=== PATIENT | male | born 1940 | race Two or more races ===

== ENCOUNTER 2020-07-15 00:28 | Inpatient (IN) | payer OTHER ==
[~2020-07-15] VITALS: Ht 162.6 cm; Wt 65.3 kg
[2020-07-15] VITALS (7 sets, daily range): BP systolic 119–161; BP diastolic 44–68
--- NOTE | 2020-07-15 00:30 | NUR ---
ED Nurse Note: pt biba from home CO SOB and abdominal pain 06/29. Pt states that he uses 2L 02 NC at home regularly. Pt states recent onset of shaking with unknown precipitating factors. Pt aao x 4, ambulates with assistance at this time. Pt states ambulates with steady gait at home normally without the use of assistive devices. Iv line initiated, blood drawn and sent to lab. Pt placed on 6L 02 NC for Spo2 of 93%. Awaiting RT at bedside for bipap. ERMD at bedside. Awaiting further orders.
--- NOTE | 2020-07-15 00:35 | NUR ---
ED Nurse Note: RT at bedside
--- NOTE | 2020-07-15 00:35 | Emergency Room Report ---
History of Present Illness General Chief Complaint: Dyspnea/Respdistress Source: Patient, EMS Present Illness HPI Patient is an 80-year-old male past medical history of diabetes, chronic renal insufficiency and COPD who is oxygen dependent on 6 L nasal cannula at home was brought in by EMS for shortness of breath. Per EMS this was their second call out to him today. Patient's had called him for generalized weakness and shaking. Patient AMA earlier in the day. Second time they arrived patient was hypoxic on his home O2 they switched the tubing to his oxygen tank and his oxygen saturation went up. They stated the called him again due to patient 's shaking. Patient states he does not feel 1 feels weak. He complains of shortness of breath. He denies any chest pain. He denies any fever or chills. He denies any abdominal pain nausea or vomiting. Allergies: Coded Allergies: No Known Allergies (Unverified , 07/15/20) COVID-19 Screening Contact w/high risk pt: No Experienced COVID-19 symptoms?: Yes COVID-19 Testing performed MANAGER TALENT ACQUISITION: No Patient History Reviewed Nursing Documentation: PMH: Agreed; PSxH: Agreed Nursing Documentation-PMH Hx Cardiac Problems: Yes - respiratory failure Hx Hypertension: Yes Hx Pacemaker: Yes Hx Asthma: Yes Hx COPD: Yes Hx Diabetes: Yes Review of Systems All Other Systems: negative except mentioned in HPI Physical Exam Vital Signs Date Time Temp Pulse Resp B/P (MAP) Pulse Ox O2 Delivery O2 Flow Rate FiO2 07/15/20 00:20 82 35 161/47 (85) 96 Non-Rebreather 7.0 Sp02 EP Interpretation: reviewed, abnormal General Appearance: mild distress Head: normocephalic, atraumatic Eyes: bilateral eye normal inspection, bilateral eye PERRL ENT: hearing grossly normal, normal pharynx, no angioedema, normal voice Neck: supple, no meningismus Respiratory: crackles, other - Tachypneic mild respiratory distress Cardiovascular #1: regular rate, rhythm Gastrointestinal: non tender, soft, no guarding, no rebound, overweight Rectal: deferred Musculoskeletal: no calf tenderness Neurologic: system dispatcher III-XII nml as tested Psychiatric: no suicidal/homicidal ideation Skin: other - 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 Due to a high probability of clinically significant, life threatening deterioration, the patient required my highest level of preparedness to intervene emergently and I personally spent this critical care time directly and personally managing the patient. This critical care time included obtaining a history; examining the patient; pulse oximetry; ordering and review of studies; arranging urgent treatment with development of a management plan; evaluation of patient's response to treatment ; frequent reassessment; and, discussions with other providers.This critical care time was performed to assess and manage the high probability of imminent, life-threatening deterioration that could result in multi-organ failure. It was exclusive of separately billable procedures and treating other patients and teaching time. Please see MDM section and the rest of the note for further information on patient assessment and treatment. Medical Decision Making Diagnostic Impression: Primary Impression: COPD exacerbation Additional Impressions: CHF (congestive heart failure) Hyponatremia Hyperkalemia Acute renal failure Sepsis Pneumonia ER Course Initial blood gas demonstrates normal pH and normal PCO2. PaO2 over 200. Adjusting FiO2 to 50%. Patient doing well on BiPAP. Patient has been pancultured. Patient's white count 18,000 with lactate of 2.4. Sepsis protocol initiated. Patient not given 30 cc/kg of IV fluids due to CHF, right pleural effusion and risk of respiratory failure. Patient mildly hyperkalemic with potassium of 5.7. 20 mg of IV Lasix has been ordered. Patient's troponin is also mildly elevated at 0.11. Patient has no active chest pain. Patient given oral aspirin. Patient started on azithromycin as well as cefepime due to community-acquired pneumonia. Patient's COVID-19 PCR is negative. Patient will be admitted for further treatment and evaluation. Laboratory Tests Test 07/15/20 00:20 07/15/20 00:26 07/15/20 00:55 White Blood Count 18.2 K/UL (4.8-10.8) H Red Blood Count 4.64 M/UL (4.70-6.10) L Hemoglobin 12.5 G/DL (14.2-18.0) L Hematocrit 40.7 % (42.0-52.0) L Mean Corpuscular Volume 88 FL (80-99) Mean Corpuscular Hemoglobin 27.0 PG (27.0-31.0) Mean Corpuscular Hemoglobin Concent 30.8 G/DL (32.0-36.0) L Red Cell Distribution Width 16.4 % (11.6-14.8) H Platelet Count 178 K/UL (150-450) Mean Platelet Volume 7.2 FL (6.5-10.1) Neutrophils (%) (Auto) % (45.0-75.0) Lymphocytes (%) (Auto) % (20.0-45.0) Monocytes (%) (Auto) % (1.0-10.0) Eosinophils (%) (Auto) % (0.0-3.0) Basophils (%) (Auto) % (0.0-2.0) Differential Total Cells Counted 100 Neutrophils % (Manual) 82 % (45-75) H Lymphocytes % (Manual) 14 % (20-45) L Monocytes % (Manual) 4 % (1-10) Eosinophils % (Manual) 0 % (0-3) Basophils % (Manual) 0 % (0-2) Band Neutrophils 0 % (0-8) Platelet Estimate Adequate Platelet Morphology Normal Prothrombin Time 13.2 SEC (9.30-11.50) H Prothrombin Time INR 1.2 (0.9-1.1) H Activated Partial Thromboplast Time 31 SEC (23-33) Sodium Level 131 MMOL/L (136-145) L Potassium Level 5.7 MMOL/L (3.5-5.1) H Chloride Level 97 MMOL/L (98-107) L Carbon Dioxide Level 23 MMOL/L (21-32) Anion Gap 11 mmol/L (5-15) Blood Urea Nitrogen 54 mg/dL (7-18) H Creatinine 2.2 MG/DL (0.55-1.30) H Estimated Glomerular Filtration Rate 28.9 mL/min (>60) Glucose Level 175 MG/DL (74-106) H Lactic Acid Level 2.40 mmol/L (0.4-2.0) H Calcium Level 8.3 MG/DL (8.5-10.1) L Magnesium Level 2.4 MG/DL (1.8-2.4) Total Bilirubin 0.4 MG/DL (0.2-1.0) Aspartate Amino Transferase (AST) 55 U/L (15-37) H Alanine Aminotransferase (ALT) 26 U/L (12-78) Alkaline Phosphatase 102 U/L (46-116) Total Creatine Kinase 184 U/L (26-308) Troponin I 0.115 ng/mL (0.000-0.056) Pro-B-Type Natriuretic Peptide 8916 pg/mL (0-125) H Total Protein 7.6 G/DL (6.4-8.2) Albumin 2.1 G/DL (3.4-5.0) L Globulin 5.5 g/dL Albumin/Globulin Ratio 0.4 (1.0-2.7) L Arterial Blood pH 7.414 (7.350-7.450) Arterial Blood Partial Pressure CO2 36.9 mmHg (35.0-45.0) Arterial Blood Partial Pressure O2 263.0 mmHg (75.0-100.0) H Arterial Blood HCO3 23.1 mmol/L (22.0-26.0) Arterial Blood Oxygen Saturation 99.0 % (95-100) Arterial Blood Base Excess -1.1 (-2-2) Abdulaziz Test Positive Urine Color Pending Urine Appearance Pending Urine pH Pending Urine Specific [place] Pending Urine Protein Pending Urine Glucose (UA) Pending Urine Ketones Pending Urine Blood Pending Urine Nitrite Pending Urine Bilirubin Pending Urine Urobilinogen Pending Urine Leukocyte Esterase Pending Microbiology Date/Time Source Procedure Growth Status 07/15/20 00:20 Nasopharynx SARS-CoV-2 RdRp Gene Assay - Final Complete EKG Diagnostic Results EKG Time: 00:32 EP Interpretation: Tia Burton MD Rate: normal - 75 bpm Rhythm: NSR ST Segments: no acute changes Other Impression Right bundle branch block Rhythm Strip Diag. Results Rhythm Strip Time: 00:35 EP Interpretation: yes - Tia Burton MD Rate: 76 bpm Rhythm: NSR, no PVC's, no ectopy Chest X-Ray Diagnostic Results Chest X-Ray Diagnostic Results : Chest X-Ray Ordered: Yes # of Views/Limited/Complete: 1 View Indication: Shortness of Breath EP Interpretation: Yes Interpretation: other - Cardiomegaly, right pleural effusion, right-sided pulmonary infiltrates, increased pulmonary vasculature Impression: Other - CHF, right pleural effusion, pneumonia Electronically Signed by: Tia Burton MD Last Vital Signs Date Time Temp Pulse Resp B/P (MAP) Pulse Ox O2 Delivery O2 Flow Rate FiO2 07/15/20 00:20 82 35 161/47 (85) 96 Non-Rebreather 7.0 Disposition: ADMITTED INPATIENT Condition: Critical Physician Consult: Dr. Garcia paged at 1:41 AM Additional Instructions: Please note that this report is being documented using DRAGON technology. This can lead to erroneous entry secondary to incorrect interpretation by the dictating instrument. Sepsis Event Note Evaluation Current Stage of Sepsis: Sepsis Possible Source: Pulmonary Focused Exam Allergies: Coded Allergies: No Known Allergies (Unverified , 07/15/20) Date Exam Occurred: Jul 15, 2020 Time Exam Occurred: 01:37 Laboratory Studies Laboratory Tests Test 07/15/20 00:20 07/15/20 00:26 07/15/20 00:55 White Blood Count 18.2 K/UL (4.8-10.8) H Red Blood Count 4.64 M/UL (4.70-6.10) L Hemoglobin 12.5 G/DL (14.2-18.0) L Hematocrit 40.7 % (42.0-52.0) L Mean Corpuscular Volume 88 FL (80-99) Mean Corpuscular Hemoglobin 27.0 PG (27.0-31.0) Mean Corpuscular Hemoglobin Concent 30.8 G/DL (32.0-36.0) L Red Cell Distribution Width 16.4 % (11.6-14.8) H Platelet Count 178 K/UL (150-450) Mean Platelet Volume 7.2 FL (6.5-10.1) Neutrophils (%) (Auto) % (45.0-75.0) Lymphocytes (%) (Auto) % (20.0-45.0) Monocytes (%) (Auto) % (1.0-10.0) Eosinophils (%) (Auto) % (0.0-3.0) Basophils (%) (Auto) % (0.0-2.0) Differential Total Cells Counted 100 Neutrophils % (Manual) 82 % (45-75) H Lymphocytes % (Manual) 14 % (20-45) L Monocytes % (Manual) 4 % (1-10) Eosinophils % (Manual) 0 % (0-3) Basophils % (Manual) 0 % (0-2) Band Neutrophils 0 % (0-8) Platelet Estimate Adequate Platelet Morphology Normal Prothrombin Time 13.2 SEC (9.30-11.50) H Prothromb Time International Ratio 1.2 (0.9-1.1) H Activated Partial Thromboplast Time 31 SEC (23-33) Sodium Level 131 MMOL/L (136-145) L Potassium Level 5.7 MMOL/L (3.5-5.1) H Chloride Level 97 MMOL/L (98-107) L Carbon Dioxide Level 23 MMOL/L (21-32) Anion Gap 11 mmol/L (5-15) Blood Urea Nitrogen 54 mg/dL (7-18) H Creatinine 2.2 MG/DL (0.55-1.30) H Estimat Glomerular Filtration Rate 28.9 mL/min (>60) Glucose Level 175 MG/DL (74-106) H Lactic Acid Level 2.40 mmol/L (0.4-2.0) H Calcium Level 8.3 MG/DL (8.5-10.1) L Magnesium Level 2.4 MG/DL (1.8-2.4) Total Bilirubin 0.4 MG/DL (0.2-1.0) Aspartate Amino Transf (AST/SGOT) 55 U/L (15-37) H Alanine Aminotransferase (ALT/SGPT) 26 U/L (12-78) Alkaline Phosphatase 102 U/L (46-116) Total Creatine Kinase 184 U/L (26-308) Troponin I 0.115 ng/mL (0.000-0.056) Pro-B-Type Natriuretic Peptide 8916 pg/mL (0-125) H Total Protein 7.6 G/DL (6.4-8.2) Albumin 2.1 G/DL (3.4-5.0) L Globulin 5.5 g/dL Albumin/Globulin Ratio 0.4 (1.0-2.7) L Arterial Blood pH 7.414 (7.350-7.450) Arterial Blood Partial Pressure CO2 36.9 mmHg (35.0-45.0) Arterial Blood Partial Pressure O2 263.0 mmHg (75.0-100.0) H Arterial Blood HCO3 23.1 mmol/L (22.0-26.0) Arterial Blood Oxygen Saturation 99.0 % (95-100) Arterial Blood Base Excess -1.1 (-2-2) Abdulaziz Test Positive Urine Color Pending Urine Appearance Pending Urine pH Pending Urine Specific [place] Pending Urine Protein Pending Urine Glucose (UA) Pending Urine Ketones Pending Urine Blood Pending Urine Nitrite Pending Urine Bilirubin Pending Urine Urobilinogen Pending Urine Leukocyte Esterase Pending Vital Signs Last 24 Hour Vital Signs Date Time Temp Pulse Resp B/P (MAP) Pulse Ox O2 Delivery O2 Flow Rate FiO2 07/15/20 01:24 72 37 99 Bi-Pap 40 73 31 99 40 07/15/20 00:20 82 35 161/47 (85) 96 Non-Rebreather 7.0 Respiratory Exam: Crackles Cardiovascular Exam: RRR Capillary Refill: Less Than 2 Seconds Peripheral Pulse: Tia Bardales M.D. Jul 15, 2020 00:35
[2020-07-15] MEDS ORDERED: Cefepime HCl 2 GM in D5W 55 ML IVPB ONE (00:45)
[2020-07-15] MEDS ORDERED: Solu-MEDROL 125mg Inj IVP ONE (00:45)
[2020-07-15] MEDS ORDERED: Albuterol/Ipratropium 3ml neb HHN ONE ×2 (00:45→02:30)
[2020-07-15] MEDS ORDERED: Azithromycin 500 MG in D5W 275 ML IVPB ONE (00:45)
[2020-07-15] MEDS ORDERED: ADVAIR 250-501 EACH INH (00:55)
[2020-07-15] MEDS ORDERED: COLCHICINE0.6 M1 PO (00:55)
[2020-07-15] MEDS ORDERED: PROSCAR5 MG ORAL (00:55)
[2020-07-15] MEDS ORDERED: ALLOPURINOL100 M1 ORAL (00:55)
[2020-07-15] MEDS ORDERED: FLOMAX0.4 MG ORAL (00:55)
[2020-07-15] MEDS ORDERED: AMLODIPINE BES2.5 MG ORAL (00:55)
[2020-07-15] MEDS ORDERED: ZINC50 MG ORAL (00:55)
[2020-07-15] MEDS ORDERED: ATORVASTATIN CA20 MG ORAL (00:55)
[2020-07-15] MEDS ORDERED: PRADAXA110 MG PO (00:55)
[2020-07-15] MEDS ORDERED: METOPROLOL SUCC25 MG ORAL (00:55)
[2020-07-15] MEDS ORDERED: FUROSEMIDE20 M1 ORAL (00:55)
[2020-07-15] MEDS ORDERED: MONTELUKAST SOD10 MG ORAL (00:55)
[2020-07-15] MEDS ORDERED: ACARBOSE50 MG ORAL (00:55)
[2020-07-15] MEDS ORDERED: ELIQUIS2.5 MG PO (00:55)
[2020-07-15] MEDS ORDERED: SENNA8.6 M2 PO (00:55)
[2020-07-15] MEDS ORDERED: LEVOTHYROXINE100 MC1 IV (00:55)
[2020-07-15 00:58] LABS: HEMATOCRIT 40.7 % (42.0-52.0); HEMOGLOBIN 12.5 G/DL (14.2-18.0); MEAN CORPUSCULAR VOLUME 88 FL (80-99); PLATELET COUNT 178 K/UL (150-450); RED BLOOD COUNT 4.64 M/UL (4.70-6.10); RED CELL DISTRIBUTION WIDTH 16.4 % (11.6-14.8); WHITE BLOOD COUNT 18.2 K/UL (4.8-10.8)
--- NOTE | 2020-07-15 01:00 | NUR ---
ED Nurse Note: All medications administered, pt tolerated well no ss of distress noted.
--- NOTE | 2020-07-15 01:11 | NUR ---
ED Nurse Note: all medications administered, pt tolerated well no ss of distress noted. willc ontinue to monitor.
[2020-07-15 01:14] LABS: INR 1.2 (0.9-1.1)
[2020-07-15 01:16] LABS: ANION GAP 11 mmol/L (5-15); BLOOD UREA NITROGEN 54 mg/dL (7-18); CALCIUM 8.3 MG/DL (8.5-10.1); CARBON DIOXIDE 23 MMOL/L (21-32); CHLORIDE 97 MMOL/L (98-107); CREATININE 2.2 MG/DL (0.55-1.30); POTASSIUM 5.7 MMOL/L (3.5-5.1); SODIUM 131 MMOL/L (136-145)
--- NOTE | 2020-07-15 01:20 | NUR ---
ED Nurse Note: RT at bedside
[2020-07-15 01:27] LABS: ALANINE AMINOTRANSFERASE 26 U/L (12-78); ALBUMIN 2.1 G/DL (3.4-5.0); ALBUMIN/GLOBULIN RATIO 0.4 (1.0-2.7); ALKALINE PHOSPHATASE 102 U/L (46-116); ASPARTATE AMINO TRANSFERASE 55 U/L (15-37); BILIRUBIN,TOTAL 0.4 MG/DL (0.2-1.0); CREATINE KINASE 184 U/L (26-308)
[2020-07-15] MEDS ORDERED: Aspirin Baby 81mg ORAL ONE (01:30)
--- NOTE | 2020-07-15 01:38 | NUR ---
ED Nurse Note: Repeat lactic acid sent to lab
[2020-07-15 01:50] LABS: APPEARANCE,URINE CLOUDY; COLOR,URINE YELLOW; GLUCOSE, URINE (UA) NEGATIVE (NEGATIVE); KETONES,URINE NEGATIVE (NEGATIVE); PROTEIN,URINE 3+ (NEGATIVE)
[2020-07-15 01:51] LABS: BILIRUBIN, URINE NEGATIVE (NEGATIVE); LEUKOCYTE ESTERASE ,URINE 3+ (NEGATIVE); NITRITE,URINE POSITIVE (NEGATIVE); UROBILINOGEN,URINE NORMAL MG/DL (0.0-1.0)
--- NOTE | 2020-07-15 03:00 | NUR ---
ED Nurse Note: RT at bedside
--- NOTE | 2020-07-15 04:10 | NUR ---
ED Nurse Note: pt taken to CT in stable condition with 1 glass technician/installer and 1 RT
--- NOTE | 2020-07-15 04:25 | NUR ---
ED Nurse Note: pt returned from CT in stable condition. VSS no ss of distress noted. will continue to monitor.
--- NOTE | 2020-07-15 05:09 | NUR ---
ED Nurse Note: pt sleeping in bed, VSS no ss of distress noted. will continue to monitor.
--- NOTE | 2020-07-15 05:16 | Diagnostic Imaging Report ---
EXAM: CT Abdomen and Pelvis Without Intravenous Contrast CLINICAL HISTORY: ABD PAIN TECHNIQUE: Axial computed tomography images of the abdomen and pelvis without intravenous contrast. CTDI is 13.20 mGy and DLP is 713.42 mGy-cm. One or more of the following dose reduction techniques were used: automated exposure control, adjustment of the mA and/or kV according to patient size, use of iterative reconstruction technique. COMPARISON: No relevant prior studies available. FINDINGS: Lung bases: See below. Pleural space: Large right lung pleural effusion at the lung base. Atelectasis and scarring of the left lung base. Heart: Cardiomegaly. Heavily calcified mitral annulus. ABDOMEN: Liver: Mild surface nodularity of the liver, correlate with LFTs to evaluate for cirrhosis. Gallbladder and bile ducts: Cholecystectomy. No ductal dilation. Pancreas: Unremarkable. No ductal dilation. Spleen: No splenomegaly. Adrenals: Left adrenal adenoma measuring 2.5 x 3.2 cm. Normal right adrenal gland. Kidneys and ureters: Mild cortical atrophy of the bilateral kidneys without hydronephrosis or nephrolithiasis. Bilateral renal cyst, measuring up to 7.9 x 7.1 cm in the left lower pole. Stomach and bowel: Unremarkable. No obstruction. No mucosal thickening. PELVIS: Appendix: Not visualized. Bladder: Normal urinary bladder. No stones. Reproductive: Enlarged prostate measuring up to 5.5 cm. ABDOMEN and PELVIS: Intraperitoneal space: Moderate volume abdominal ascites. No free air. Bones/joints: Sternotomy wires. Degenerative change of the spine. No acute fracture. No dislocation. Soft tissues: Moderate fluid within the right inguinal canal. Mild anasarca. Vasculature: Calcified thoracic aorta, with coronary involvement. Atherosclerotic change of the abdominal aorta with mild infrarenal abdominal aortic aneurysm measuring 2.2 x 2.4 cm. Lymph nodes: Unremarkable. No enlarged lymph nodes. Tubes, lines and devices: EKG leads within the right atrium and right ventricle. IMPRESSION: Moderate volume abdominal and pelvic ascites. Surface nodularity of the liver, correlate for cirrhosis. No splenomegaly. Cholecystectomy. Left adrenal adenoma measuring 2.5 x 3.2 cm. No hydronephrosis. No small bowel obstruction. No acute diverticulitis. Enlarged prostate. Moderate fluid within the right inguinal canal. Mild anasarca.
--- NOTE | 2020-07-15 06:04 | NUR ---
ED Nurse Note: report given to [facility] on sdu
--- NOTE | 2020-07-15 06:15 | NUR ---
ER DISCHARGE NOTE: Patient is cleared to be discharged to SDU unit per ERMD, pt is aox4, 96% on Bipap, with stable vital signs. pt was able to verbalize understanding. pt is able to ambulate with assistance. pt took all belongings. Pt transferred to unit with 1 RN and 1 MARKET DEVELOPMENT ANALYST on monitor. Report given to CALEB Serrato on SDU unit.
--- NOTE | 2020-07-15 06:25 | NUR ---
NURSE NOTES: Patient arrived SDU Room 235-2 by araceli. Accompanied by 2 ED staffs. Received report from Nikolas RN in ED.Patient awake and oriented x4. on BiPAP (10/5 45%) with no respiratory distress noted. o2 saturation 96%. SR on the cardiac cath lab radiology technologist. BP 136/56 HR 60 RR 22 Temp 96.6 Denies any pain at this time.body assessment was done.Noted redness on sacral area. Patient has pacemaker on left upper chest.hospital orientation given. call light in reach.bed locked,in lowest,alarm is on.we will initiate plan of care.
--- NOTE | 2020-07-15 07:15 | NUR ---
NURSE NOTES: Received report from CALEB Serrato. Seen pt in bed lying in semi-victoria's position. In Bipap attached to patient, RT on bedside . O2 sat on 96% on Bipap. Pt is alert x 4. Able to follow commands. Relative on bedside. Initial assessment done. VS checked. No pain at this time. Pt able to comprehend. No signs of distress noted at this time. Continue to plan of care. Bed in lowest position. Call light within reach. Spoke to dr. Quiroz regarding admit orders made aware.
--- NOTE | 2020-07-15 07:40 | NUR ---
HAND-OFF: Report given to René Ahmadi RN .Patient remains in stable conditions with BiPAP.
[2020-07-15] MEDS ORDERED: Precose 50mg tab ORAL SCH (09:00)
[2020-07-15] MEDS ORDERED: Furosemide 40mg tab ORAL SCH (09:00)
[2020-07-15] MEDS ORDERED: Montelukast 10mg tablet ORAL SCH (09:00)
[2020-07-15] MEDS: Eliquis 2.5mg tablet ORAL SCH ×2 (09:00→17:56)
[2020-07-15] MEDS ORDERED: Metoprolol Succinate XL 25mg tab ORAL SCH (09:00)
[2020-07-15] MEDS ORDERED: Tamsulosin 0.4mg cap ORAL SCH ×2 (09:00→18:00)
[2020-07-15] MEDS ORDERED: Sennosides 8.6mg tab ORAL SCH (09:00)
[2020-07-15] MEDS ORDERED: Allopurinol 100mg Tab ORAL SCH (09:00)
[2020-07-15] MEDS ORDERED: cefTRIAXone 1 GM in D5W 55 ML IVPB SCH (09:30)
--- NOTE | 2020-07-15 10:02 | NUR ---
NURSE NOTES: Seen by Dr. parks and family at bedside. dr parks ordered to hold thoracentesis for now.will continue to monitor.
--- NOTE | 2020-07-15 10:22 | Diagnostic Imaging Report ---
Indication: Shortness of breath Technique: XRAY Chest 1v Comparison: None Findings: Heart is enlarged. There is evidence of prior cardiac surgery with sternotomy wires and indwelling dual-lead pacemaker. Lead tips projecting of the suspected region of the right atrium and ventricle. Note there is some redundancy of the right ventricular lead. There is interstitial opacification/edema and patchy perihilar airspace disease, right greater than left. There is a is small to moderate layering right pleural effusion. No evidence of pneumothorax. Osseous structures demonstrate no acute abnormality. Impression: Cardiomegaly and evidence of prior cardiac surgery with indwelling left-sided pacemaker. Slight redundancy of the right ventricular pacer lead. Findings suggesting pulmonary edema/CHF with perihilar opacities and small to moderate layering right pleural effusion. Superimposed pneumonia should be excluded clinically.
[2020-07-15 10:43] LABS: HEMATOCRIT 40.3 % (42.0-52.0); HEMOGLOBIN 12.3 G/DL (14.2-18.0); MEAN CORPUSCULAR VOLUME 89 FL (80-99); PLATELET COUNT 168 K/UL (150-450); RED BLOOD COUNT 4.55 M/UL (4.70-6.10); RED CELL DISTRIBUTION WIDTH 16.1 % (11.6-14.8)
[2020-07-15] MEDS ORDERED: Cefepime HCl 1 GM in NS 55 ML IVPB SCH (11:00)
[2020-07-15 11:07] LABS: ALANINE AMINOTRANSFERASE 32 U/L (12-78); ALBUMIN 1.9 G/DL (3.4-5.0); ALBUMIN/GLOBULIN RATIO 0.4 (1.0-2.7); ALKALINE PHOSPHATASE 79 U/L (46-116); ANION GAP 9 mmol/L (5-15); ASPARTATE AMINO TRANSFERASE 53 U/L (15-37); BILIRUBIN,TOTAL 0.3 MG/DL (0.2-1.0); BLOOD UREA NITROGEN 60 mg/dL (7-18); CALCIUM 8.2 MG/DL (8.5-10.1); CARBON DIOXIDE 27 MMOL/L (21-32); CHLORIDE 102 MMOL/L (98-107); CHOLESTEROL 105 MG/DL (< 200); CREATINE KINASE 194 U/L (26-308); CREATININE 2.2 MG/DL (0.55-1.30); GAMMA GLUTAMYL TRANSPEPTIDASE 18 U/L (5-85); HDL CHOLESTEROL 38 MG/DL (40-60); PHOSPHORUS 4.7 MG/DL (2.5-4.9); POTASSIUM 5.6 MMOL/L (3.5-5.1); SODIUM 138 MMOL/L (136-145); TRIGLYCERIDES 81 MG/DL (30-150)
--- NOTE | 2020-07-15 12:00 | Consultation ---
DATE OF CONSULTATION: 07/15/2020 INFECTIOUS DISEASES CONSULTATION CONSULTING PHYSICIAN: David Castaneda MD. REFERRING PHYSICIAN: Saman Garcia MD. REASON FOR CONSULTATION: Pneumonia. HISTORY OF PRESENT ILLNESS: This is an 80-year-old gentleman with history of diabetes, COPD, chronic renal insufficiency, cirrhosis, who comes in with shortness of breath. He has increasing abdominal distention. An Infectious Diseases consultation has been obtained for antibiotics. PAST MEDICAL HISTORY: 1. History of diabetes. 2. Hypertension. 3. COPD. 4. Asthma. 5. Chronic renal insufficiency. 6. Cirrhosis. 7. History of pleural effusion status post thoracentesis with pneumothorax. 8. History of pacemaker placement. 9. Cholecystectomy. SOCIAL HISTORY: He used to be a smoker, he does not smoke anymore. He used to drink alcohol, he does not drink anymore. No history of drug use. FAMILY HISTORY: Noncontributory. REVIEW OF SYSTEMS: RESPIRATORY: No fever or chills. No cough. He has shortness of breath. No chest pain. CARDIAC: No chest pain. No palpitation. No dizziness. No syncope. GASTROINTESTINAL: No nausea, no vomiting. He has abdominal distention. No diarrhea. MEDICATIONS: As an inpatient, he is on Lipitor, Lasix, Flomax, Solu-Medrol, levothyroxine, cefepime, acarbose, allopurinol, amlodipine, Eliquis, Proscar, Lasix, metoprolol, montelukast, Senokot. ALLERGIES: No known drug allergies. PHYSICAL EXAMINATION: VITAL SIGNS: Temperature of 96.8, T-max of 98.9, pulse of 60, respiratory rate 21, blood pressure 128/64, O2 saturation 95%. HEENT: Pupils are equally reactive to light and accommodation. Mouth appears clean without thrush. NECK: Supple. No adenopathy. No JVD. CARDIOVASCULAR: Regular rate and rhythm. No murmurs. LUNGS: Clear to auscultation bilaterally. No crackles. No wheezes. ABDOMEN: Soft, distended. No organomegaly. EXTREMITIES: No cyanosis, no clubbing, no edema. LABORATORY AND DIAGNOSTIC DATA: White count 18.2, hemoglobin 12.5, hematocrit 40.7, MCV 88, platelet count of 178, neutrophils of 82%. Sodium 131, potassium 5.7, chloride 97, bicarb 23, BUN 54, creatinine 2.2, glucose 175, calcium 8.3, total bilirubin 0.4, AST 55, ALT 26, alkaline phosphatase 102. CK 184. Beta natriuretic peptide 8916. Total protein 7.6, albumin 2.1. UA showing too numerous to count white cells. COVID-19 rapid test is negative. Chest x-ray showing pulmonary edema, CHF with perihilar opacities, and right-sided pleural effusion, pacemaker noted. CT abdomen and pelvis showing moderate ascites, cirrhosis, splenomegaly, cholecystectomy, left adrenal adenoma, no hydronephrosis, small bowel obstruction, enlarged prostate, moderate fluid within the right inguinal canal, mild anasarca. ASSESSMENT: This an 80-year-old gentleman with history of diabetes, hypertension, renal failure, cirrhosis, COPD who previously had a pneumothorax after a thoracentesis for pleural effusion, now comes in with shortness of breath and is found to have. 1. Urinary tract infection. Cultures are pending. 2. Ascites. 3. Pleural effusion. 4. COPD. 5. Diabetes. 6. Hypertension. 7. Renal insufficiency. PLAN: 1. Continue IV cefepime. 2. We will order urine cultures. 3. We will follow up cultures and adjust antibiotics accordingly. I would like to thank, Dr. Garcia, for this consultation. David Castaneda M.D. DR: Marlys JOB#: [id number] CC: Saman Garcia M.D.; Fax#: [phone]
[2020-07-15] MEDS ORDERED: Sodium Polystyrene Sulfonate 15gm Powder ORAL SCH (12:15)
--- NOTE | 2020-07-15 12:20 | Consultation ---
Consult Note Consult Note I am asked to evaluate the patient at the request of Dr. Garcia for renal failure Patient seen in room 235 Patient was just done with 2D echocardiogram, combination technician states that has an ejection fraction of around 40% CALEB Manuel in the room Patient is Danish not fluent in Swazi Interviewed Examined Data reviewed Patient is an 80-year-old male past medical history of diabetes, chronic renal insufficiency and COPD who is oxygen dependent on 6 L nasal cannula at home was brought in by EMS for shortness of breath. Per EMS this was their second call out to him today. Patient's had called him for generalized weakness and shaking. Patient AMA earlier in the day. Second time they arrived patient was hypoxic on his home O2 they switched the tubing to his oxygen tank and his oxygen saturation went up. They stated the called him again due to patient 's shaking. Patient states he does not feel 1 feels weak. He complains of shortness of breath. He denies any chest pain. He denies any fever or chills. He denies any abdominal pain nausea or vomiting. No Known Allergies (Unverified , 07/15/20) COVID-19 Screening Contact w/high risk pt: No Experienced COVID-19 symptoms?: Yes COVID-19 Testing performed CUSTOMER CARE ASSISTANT: No Hx Cardiac Problems: Yes - respiratory failure Hx Hypertension: Yes Hx Pacemaker: Yes Hx Asthma: Yes Hx COPD: Yes Hx Diabetes: Yes . Assessment/Plan Renal failure, acute on chronic, most likely diabetic nephropathy Presents with shortness of breath most likely combination of COPD exacerbation and CHF Hyperkalemia Sepsis, pneumonia Compromised ejection fraction on 2D echo Questionable cirrhosis BPH Suggestions: Kayexalate for high potassium Kidney ultrasound Bedside bladder scan Flomax and Proscar Optimize pulmonary and cardiac status Avoid nephrotoxic's Keep the blood pressure and blood sugar in check Urine studies Per orders CT ABDOMEN: Moderate volume abdominal and pelvic ascites. If your watch then you can apply surface nodularity of the liver, correlate for cirrhosis. No splenomegaly. Cholecystectomy. Left adrenal adenoma measuring 2.5 x 3.2 cm. No hydronephrosis. No small bowel obstruction. No acute diverticulitis. Enlarged prostate. Moderate fluid within the right inguinal canal. Mild anasarca. Stephan Loera MD Jul 15, 2020 12:20
--- NOTE | 2020-07-15 12:45 | History and Physical Report ---
DATE OF ADMISSION: 07/15/2020 HISTORY OF PRESENT ILLNESS: This is an 80-year-old male with a long and complicated history of COPD, prostate CA, and liver cirrhosis, CHF as well as bladder cancer was brought to the hospital with altered mental status. The patient states that he was recently seen at [facility] where he underwent paracentesis for his chronic ascites. He previously had a complicated right thoracentesis which caused lung collapse and he had to have a chest tube in place. He remained hypoxic and was shaking at home and was brought to the hospital. He was admitted to the hospital for further management and care. PAST MEDICAL HISTORY: Notable for prostate and bladder carcinoma, liver cirrhosis, CHF, COPD. There is also documentation of a pacemaker. He is also known diabetic. Notable for thoracentesis complicated by lung collapse as well as previous paracentesis. HOME MEDICATIONS: Include allopurinol, Norvasc, Eliquis, Lipitor, Proscar, Lasix, Synthroid, metoprolol, Singulair, Flomax, aspirin. He has received cefepime and azithromycin. Currently is on Rocephin. REVIEW OF SYSTEMS: Denies any headaches, hematemesis, melena, hematochezia, or weight loss. ALLERGIES: None known. CODE STATUS: Full. SOCIAL HISTORY: Lives at home with family. PHYSICAL EXAMINATION: GENERAL: Reveals a 80-year-old male. VITAL SIGNS: Blood pressure is 120/60, heart rate 60, respirations are 18, O2 saturation 95% on 2 L of oxygen. HEENT: Unremarkable. LUNGS: Decreased breath sounds on right side. ABDOMEN: Soft, distended. EXTREMITIES: There is no edema. CHEST: Decreased breath sounds on the right side. LABORATORY AND DIAGNOSTIC DATA: Lab testing shows white count 77728, hemoglobin 12. Sodium 131, potassium 5.7, creatinine 2.2, glucose 175. . Troponin 0.11. Coags are negative. Urinalysis shows multiple pus cells. COVID-19 assay is negative. Apparently he underwent imaging studies yesterday which have shown large right effusion, calcified mitral anulus, cortical atrophy of the kidneys, moderate ascites. IMPRESSION: 1. Respiratory failure on BiPAP. 2. Liver cirrhosis. 3. CHF. 4. Calcified mitral anulus. 5. Pulmonary edema. 6. Chronic right effusion. 7. Pneumonia. 8. UTI. DISCUSSION: Admit to the hospital. We will start broad-spectrum antibiotics. Consult Nephrology, Cardiology, and ID. May benefit from intervention from the mitral valve and order 2D echo. Discussed with family. Hold off on thoracentesis given previous poor outcome from thoracentesis. Continue home medication . We will follow carefully. Saman Garcia M.D. DR: Trey JOB#: [id number] CC:
[2020-07-15] MEDS ORDERED: Metoclopramide 10mg/2ml Inj IVP PRN ×4 (13:00→20:34)
[2020-07-15] MEDS: Docusate 100mg cap ORAL SCH ×2 (13:07→17:56)
[2020-07-15] MEDS: Solu-MEDROL 40mg Inj IVP SCH ×3 (13:07→23:25)
--- NOTE | 2020-07-15 14:10 | NUR ---
CASE MANAGEMENT: REVIEW 80 YEAR OLD MALE PRESENTED TO ED FROM HOME CC: SOB . GENERALIZED WEAKNESS SI: RESP FAILURE . CHF . PNA . PULMONARY EDEMA T 98.9 HR 82 RR 35 BP 161/47 SAT 96% BIPAP FIO2 40 WBC 18.2 NA 131 K 5.7 BUN 54 CR 2.2 BNP 8916 IS: NS IVF BOLUS X1 CEFEPIME IV X1 AZITHROMYCIN IV X1 SOLU MEDROL IV X1 ALBUTEROL HHN X1 LASIX IV X1 ASA 162MG PO X1 FLOMAX PO X1 PATIENT ADMITTED TO STEP DOWN UNIT 07/15/2020 DCP: PATIENT IS FROM HOME w/HOME O2 & HOME HEALTH NURSE
--- NOTE | 2020-07-15 14:20 | NUR ---
Spoke to Dr. Garcia. Okay to go ahead and do paracentesis as ordered from ER dept. ordered Bedside glucose checked. At this time Cpap is not needed per physician.
--- NOTE | 2020-07-15 14:33 | NUR ---
INSURANCE FAXED CLINICALS/REVIEW TO [facility]: PATRICIA P:[phone] F:[phone]
--- NOTE | 2020-07-15 16:05 | Pre-Procedure Note/Attestation ---
Pre-Procedure Note/Attestation Complete Prior to Procedure Planned Procedure: not applicable Procedure Narrative: paracentesis Indications for Procedure Pre-Operative Diagnosis: ascites Attestation I attest that I discussed the nature of the procedure; its benefits; risks and complications; and alternatives (and the risks and benefits of such alternatives ), prior to the procedure, with the patient (or the patient's legal financial representative). I attest that, if there was a reasonable possibility of needing a blood transfusion, the patient (or the patient's legal financial representative) was given the [facility] standardized written summary, pursuant to the Сергей Hafsa Blood Safety Act ([place] Health and Safety Code # 1645, as amended). I attest that I re-evaluated the patient just prior to the surgery and that there has been no change in the patient's H&P, except as documented below: Discussed by phone with pt's. as well as with pt. Mark Bolaños MD Jul 15, 2020 16:05
--- NOTE | 2020-07-15 16:05 | Brief Operative Note ---
Immediate Post Operative Note Operative Note Pre-op Diagnosis: ascites Procedure: paracentesis Post-op Diagnosis: same as pre-op Surgeon: Karley Alaniz Anesthesia: local Specimen: yes - 50 ml fluid Complications: none Fluids: none Implant(s) used?: No Mark Alaniz MD Jul 15, 2020 16:05
[2020-07-15] MEDS ORDERED: NovoLOG Insulin Flexpen SUBQ SCH (16:30)
[2020-07-15] MEDS ORDERED: Nateglinide 60mg tab ORAL SCH (16:30)
--- NOTE | 2020-07-15 16:45 | NUR ---
NURSE NOTES: Paracentesis done as ordered. Output of 4L. Post void output of 30ml. No bladder distention. No signs of significant changes. BP within Normal limits 128/67.
--- NOTE | 2020-07-15 17:00 | NUR ---
NURSE NOTES: No response from Dr. Garcia yet if we can send the Paracentesis output.
--- NOTE | 2020-07-15 17:28 | Diagnostic Imaging Report ---
Indication: Acute renal failure, abnormal renal function tests Technique: Grayscale and duplex images of the kidneys, retroperitoneum, and bladder were obtained. Comparison: none Findings: Right kidney measures 10.8 cm in length. Left kidney measures 11.6 cm in length. Both kidneys demonstrate normal echogenicity. No hydronephrosis. Cysts are demonstrated bilaterally. The bladder is nearly empty, patient voided shortly before the scan.. Normal inferior vena cava. The prostate is enlarged, measures 3.6 x 4 x 5.3 cm Impression: Negative for hydronephrosis Bilateral renal cysts Enlarged prostate.
--- NOTE | 2020-07-15 17:35 | Diagnostic Imaging Report ---
Indications: Ascites Technique: Ultrasound used to localize optimal puncture site. Sterile prepping and draping right lower quadrant. Local anesthesia with 1% lidocaine. Under real-time ultrasound guidance, puncture peritoneal space using paracentesis needle. Stylet removed. Catheter placed to vacuum bottle suction. Total for liters of fluid aspirated. Patient tolerated procedure well, without immediate complication. Findings: Followup sonography demonstrates complete resolution of peritoneal fluid. Impression: Successful ultrasound-guided paracentesis, yielding 4 liters of fluid
--- NOTE | 2020-07-15 19:10 | NUR ---
NURSE NOTES: Received report from CALEB Manuel/ CALEB Ahmadi. Pt asleep in bed, afebrile and no respiratory distress noted. With left upper chest pacemaker on V-paced via 5 lead revenue stamp cutter. On Nasal Cannula at 3lpm of oxygen. Pt saturating 99-100%. With left FA 20G intact, patent and asymptomatic. HOB elevated. Call light within reach. Bed rails are up and wheels are locked. Continue to monitor the patient
--- NOTE | 2020-07-15 19:20 | NUR ---
NURSE HAND-OFF REPORT: Important Events on Shift: Paracentesis -4L output. Hold thoracentesis. D/C Bipap on 3L NC Patient Status: Stable Diet: Clear liquid diet Pending Orders: If paracentesis specimen need to be collected for lab Pending Results/Labs: None Pending MD notification: Dr. Garcia Latest Vital Signs: Temperature 96.1 , Pulse 60 , B/P 120 /52 , Respiratory Rate 18 , O2 SAT 99 , Bi-pap, O2 Flow Rate 2.0 . Vital Sign Comment: WNL EKG Rhythm: V-Paced Rhythm change?: N MD Notified?: - MD Response Latest Cortez Fall Score: 60 Fall Risk: High Risk Safety Measures: Call light Within Reach, Bed Alarm Zone 1, Side Rails Side Rails x3, Bed position Low and Locked. Fall Precautions: Yes Report given to . Chela MANCERA RN
[2020-07-15] MEDS: Atorvastatin 20mg tab ORAL SCH (20:39)
[2020-07-15] MEDS: NovoLOG Insulin Flexpen SUBQ SCH (20:43)
[2020-07-15] MEDS ORDERED: Atorvastatin 20mg tab ORAL SCH (21:00)
[2020-07-16] VITALS: BP 107/50
--- NOTE | 2020-07-16 03:45 | Consultation ---
DATE OF CONSULTATION: 07/15/2020 CARDIOLOGY CONSULTATION CONSULTING PHYSICIAN: Laurent Orozco M.D. REQUESTING PHYSICIAN: Saman Garcia M.D. REASON FOR CONSULTATION: Abnormal cardiac heart valve. HISTORY OF PRESENT ILLNESS: This 80-year-old male has a history of degenerative valve disease and congestive heart failure as well as chronic liver disease requiring recent paracentesis at [facility]. The patient has previously had pleural effusions that required a right thoracentesis that was complicated by a pneumothorax and required a chest tube. The patient was recently hospitalized at [facility] apparently for complications of his bladder and prostate cancers and COPD, further complicated by cirrhosis. Following his discharge, he developed hypoxia and shaking at home and was brought to the emergency room. I have been asked to address his abnormal echocardiogram. PAST MEDICAL HISTORY: Includes prostate and bladder cancer, liver cirrhosis, history of congestive heart failure, COPD, permanent pacemaker, type 2 diabetes mellitus, hypothyroidism, prostatic hypertrophy, paroxysmal atrial arrhythmias. MEDICATIONS: Reviewed and reconciled and include apixaban, Lipitor, amlodipine, allopurinol, Proscar, furosemide, Synthroid, metoprolol, Singulair, Flomax, and aspirin. REVIEW OF SYSTEMS: A 10-point review of systems performed. All pertinent positives have been outlined above. ALLERGIES: None known. SOCIAL HISTORY: Heavy smoker in the past with 50-pack year smoking history. No current alcohol or substance abuse. PHYSICAL EXAMINATION: VITAL SIGNS: Blood pressure 120/60, pulse 60, respirations 18. NECK: Jugular venous pressure is grossly normal. LUNGS: Diminished breath sounds on the right with few rhonchi. CARDIAC: Regular rhythm and rate. Normal S1, paradoxically split S2. A 1/6 systolic murmur at the base. ABDOMEN: Soft, nontender. No ascites and no edema. LABORATORY AND DIAGNOSTIC DATA: Echocardiogram reviewed. There is normal ejection fraction. Aortic valve sclerosis, moderate stenosis with aortic valve area calculated at 1 cm2. There is evidence of mitral annular calcification and thickening of the mitral leaflet. Excursion is normal. There is mild regurgitation. The tricuspid valve reveals moderate regurgitation with a PA systolic pressure estimate of 39 mmHg. Natriuretic peptide is 8900. Troponin is 0.115. EKG with sinus rhythm and right bundle-branch block. IMPRESSION: 1. Urinary tract infection, possible sepsis. 2. Chronic liver disease with history of ascites. 3. Pleural effusions with history of complicated thoracentesis. 4. Degenerative valve disease with moderate aortic stenosis and mild mitral regurgitation. 5. Increased risk for endocarditis. 6. Hypertension. 7. Acute on chronic diastolic congestive heart failure. 8. Acute myocardial ischemia. 9. COPD. 10. Permanent pacemaker with history of arrhythmias. PLAN: 1. Antimicrobials. 2. Await culture results. 3. Consideration for further diagnostic workup of endocarditis. 4. If bacteremia is noted, a transesophageal echocardiogram may not be possible if he has varices associated with his chronic liver disease. 5. In the future, antibiotic prophylaxis certain surgical instrumentation should be considered. 6. Diuretic and anti-failure regimen can be optimized based on clinical parameters. 7. Information regarding pacemaker will be obtained and consideration for interrogation if not recently done. 8. Continuation of anticoagulation with caution in view of chronic liver disease. Dose adjustment of anticoagulant should be addressed. Laurent Orozco M.D. DR: FIORELLA JOB#: [id number] CC:
[2020-07-16 04:00] VITALS: BP 149/72
[2020-07-16] MEDS: Solu-MEDROL 40mg Inj IVP SCH ×3 (05:35→18:24)
[2020-07-16] MEDS: NovoLOG Insulin Flexpen SUBQ SCH ×4 (05:36→21:40)
[2020-07-16] MEDS ORDERED: Nateglinide 60mg tab ORAL SCH (06:30)
--- NOTE | 2020-07-16 07:30 | NUR ---
NURSE NOTES: Received report from CALEB York. Patient is resting in bed, in stable condition. No s/sx of SOB, breathing is even and unlabored, pt on 2LNC SpO2 98%, A&O x 4. Denies any presence of pain or discomfort at this time. Bed is in lowest position, brakes engaged. Call light is kept within easy reach. Will continue to monitor patient.
[2020-07-16 07:49] VITALS: BP 130/55
[2020-07-16] MEDS ORDERED: Sennosides 8.6mg tab ORAL SCH (09:00)
[2020-07-16] MEDS ORDERED: Cefepime HCl 1 GM in NS 55 ML IVPB SCH (09:00)
[2020-07-16] MEDS ORDERED: Metoprolol Succinate XL 25mg tab ORAL SCH (09:00)
[2020-07-16] MEDS ORDERED: Allopurinol 100mg Tab ORAL SCH (09:00)
[2020-07-16] MEDS ORDERED: Furosemide 40mg tab ORAL SCH (09:00)
[2020-07-16] MEDS ORDERED: Montelukast 10mg tablet ORAL SCH (09:00)
[2020-07-16 09:01] LABS: HEMOGLOBIN 12.3 G/DL (14.2-18.0); MEAN CORPUSCULAR VOLUME 88 FL (80-99); PLATELET COUNT 177 K/UL (150-450); RED BLOOD COUNT 4.65 M/UL (4.70-6.10); RED CELL DISTRIBUTION WIDTH 16.4 % (11.6-14.8); WHITE BLOOD COUNT 12.8 K/UL (4.8-10.8)
[2020-07-16] MEDS: Tamsulosin 0.4mg cap ORAL SCH ×2 (09:12→18:23)
[2020-07-16] MEDS: Docusate 100mg cap ORAL SCH ×3 (09:13→18:23)
[2020-07-16 09:14] LABS: ANION GAP 4 mmol/L (5-15); BLOOD UREA NITROGEN 67 mg/dL (7-18); CALCIUM 8.6 MG/DL (8.5-10.1); CARBON DIOXIDE 31 MMOL/L (21-32); CHLORIDE 106 MMOL/L (98-107); CREATININE 1.9 MG/DL (0.55-1.30); POTASSIUM 4.7 MMOL/L (3.5-5.1); SODIUM 141 MMOL/L (136-145)
[2020-07-16] MEDS: Eliquis 2.5mg tablet ORAL SCH ×2 (09:14→18:23)
[2020-07-16 09:18] LABS: ALANINE AMINOTRANSFERASE 42 U/L (12-78); ALBUMIN 1.7 G/DL (3.4-5.0); ALBUMIN/GLOBULIN RATIO 0.3 (1.0-2.7); ALKALINE PHOSPHATASE 61 U/L (46-116); ASPARTATE AMINO TRANSFERASE 60 U/L (15-37); BILIRUBIN,TOTAL 0.3 MG/DL (0.2-1.0)
--- NOTE | 2020-07-16 10:10 | Nephrology Progress Note ---
Assessment/Plan Problem List: (1) Renal failure (ARF), acute on chronic (2) Hyperkalemia (3) COPD exacerbation (4) CHF (congestive heart failure) (5) Sepsis (6) Liver cirrhosis (7) Pacemaker Assessment Renal failure, acute on chronic, most likely diabetic nephropathy Presents with shortness of breath most likely combination of COPD exacerbation and CHF Hyperkalemia Sepsis, pneumonia Compromised ejection fraction on 2D echo Questionable cirrhosis BPH Plan Kayexalate for high potassium as needed Kidney ultrasound, results noted Bedside bladder scan, indicative of 30 cc retention Flomax and Proscar to be continued Optimize pulmonary and cardiac status Avoid nephrotoxic's Keep the blood pressure and blood sugar in check Urine studies Per orders Subjective ROS Limited/Unobtainable: No Constitutional: Reports: malaise, weakness Objective Objective Last 24 Hour Vital Signs Date Time Temp Pulse Resp B/P (MAP) Pulse Ox O2 Delivery O2 Flow Rate FiO2 07/16/20 09:14 64 130/55 07/16/20 09:13 64 130/55 07/16/20 08:00 3.0 07/16/20 08:00 60 07/16/20 08:00 Bi-pap 07/16/20 07:49 96.8 64 18 130/55 (80) 95 07/16/20 04:00 Bi-pap 07/16/20 04:00 3.0 07/16/20 04:00 96.6 60 18 149/72 (97) 98 07/16/20 03:44 60 07/16/20 00:00 3.0 07/16/20 00:00 96.4 58 18 107/50 (69) 98 07/16/20 00:00 Bi-pap 07/15/20 23:28 61 07/15/20 20:00 Bi-pap 07/15/20 20:00 96.6 59 18 139/58 (85) 98 07/15/20 20:00 3.0 07/15/20 19:27 99 Nasal Cannula 2.0 28 07/15/20 19:04 62 07/15/20 16:00 Bi-pap 07/15/20 16:00 3.0 07/15/20 16:00 96.1 60 18 120/52 (74) 98 07/15/20 15:32 62 07/15/20 12:00 Bi-pap 07/15/20 12:00 60 07/15/20 12:00 3.0 07/15/20 12:00 96.5 60 19 127/58 (81) 93 07/15/20 11:00 92 Nasal Cannula 2.0 28 Intake and Output 07/15/20 07/16/20 19:00 07:00 Intake Total 295 ml 200 ml Output Total 500 ml 820 ml Balance -205 ml -620 ml Intake Oral 240 ml 200 ml IV Total 55 ml Output Urine Total 500 ml 820 ml # Voids 4 Current Medications Medications (Trade) Dose Ordered Sig/Evan Route PRN Reason Start Time Stop Time Status Last Admin Dose Admin Allopurinol (Zyloprim) 200 mg DAILY ORAL 07/17/20 09:00 08/14/20 08:59 UNV Amlodipine Besylate (Norvasc) 5 mg DAILY ORAL 07/16/20 09:00 08/14/20 08:59 07/16/20 09:14 Apixaban (Eliquis) 2.5 mg BID ORAL 07/16/20 09:00 10/13/20 08:59 07/16/20 09:14 Atorvastatin Calcium (Lipitor) 20 mg BEDTIME ORAL 07/15/20 21:00 10/13/20 20:59 07/15/20 20:39 Cefepime HCl 1 gm/ Sodium Chloride 55 ml @ 110 mls/hr DAILY IVPB 07/16/20 09:00 07/22/20 10:59 07/16/20 09:12 Dextrose (Dextrose 50%) 25 ml Q30M PRN IV Hypoglycemia 07/15/20 20:32 10/13/20 20:31 Dextrose (Dextrose 50%) 50 ml Q30M PRN IV Hypoglycemia 07/15/20 20:33 10/13/20 20:32 Docusate Sodium (Colace) 100 mg THREE TIMES A DAY ORAL 07/16/20 09:00 08/14/20 12:59 07/16/20 09:13 Finasteride (Proscar) 5 mg DAILY ORAL 07/16/20 09:00 10/13/20 08:59 07/16/20 09:13 Furosemide (Lasix) 20 mg BEDTIME ORAL 07/15/20 21:00 08/14/20 20:59 07/15/20 20:40 Furosemide (Lasix) 40 mg DAILY ORAL 07/16/20 09:00 08/14/20 08:59 07/16/20 09:13 Hydralazine HCl (Apresoline) 10 mg Q4H PRN IV BP over 160 systolic 07/15/20 20:33 10/13/20 20:32 Insulin Aspart (NovoLOG) BEFORE MEALS AND HS SUBQ 07/15/20 21:00 10/13/20 16:29 07/16/20 05:36 Levothyroxine Sodium (Synthroid) 50 mcg DAILY@0630 ORAL 07/16/20 06:30 08/15/20 11:29 07/16/20 05:41 Methylprednisolone Sodium Succinate (Solu-MEDROL) 40 mg EVERY 6 HOURS IVP 07/16/20 00:00 10/13/20 11:59 07/16/20 05:35 Metoclopramide HCl (Reglan) 5 mg TID ORAL 07/16/20 09:00 08/14/20 12:59 07/16/20 09:14 Metoclopramide HCl (Reglan) 10 mg Q6H PRN IVP Nausea & Vomiting 07/15/20 20:34 08/14/20 20:33 Metoprolol Succinate (Toprol XL) 25 mg DAILY ORAL 07/16/20 09:00 10/13/20 08:59 07/16/20 09:13 Montelukast Sodium (Singulair) 10 mg DAILY ORAL 07/16/20 09:00 10/13/20 08:59 07/16/20 09:12 Nateglinide (Starlix) 120 mg TIAC ORAL 07/16/20 11:30 08/14/20 16:29 UNV Pantoprazole (Protonix) 40 mg EVERY 12 HOURS ORAL 07/15/20 21:00 08/14/20 20:59 07/16/20 09:12 Sennosides (Senokot) 8.6 mg DAILY ORAL 07/16/20 09:00 08/14/20 08:59 07/16/20 09:14 Tamsulosin HCl (Flomax) 0.4 mg BID ORAL 07/16/20 09:00 08/14/20 08:59 07/16/20 09:12 Laboratory Tests 07/15/20 10:25: White Blood Count 14.0H, Red Blood Count 4.55L, Hemoglobin 12.3L, Hematocrit 40.3L, Mean Corpuscular Volume 89, Mean Corpuscular Hemoglobin 27.0, Mean Corpuscular Hemoglobin Concent 30.5L, Red Cell Distribution Width 16.1H, Platelet Count 168, Mean Platelet Volume 7.3, Neutrophils (%) (Auto) , Lymphocytes (%) (Auto) , Monocytes (%) (Auto) , Eosinophils (%) (Auto) , Basophils (%) (Auto) , Differential Total Cells Counted 100, Neutrophils % ( Manual) 93H, Lymphocytes % (Manual) 3L, Monocytes % (Manual) 4, Eosinophils % ( Manual) 0, Basophils % (Manual) 0, Band Neutrophils 0, Platelet Estimate Adequate, Platelet Morphology Normal, Red Blood Cell Morphology Normal, Sodium Level 138, Potassium Level 5.6H, Chloride Level 102, Carbon Dioxide Level 27, Anion Gap 9, Blood Urea Nitrogen 60H, Creatinine 2.2H, Estimat Glomerular Filtration Rate 28.9, Glucose Level 217H, Hemoglobin A1c 6.7H, Uric Acid 6.7, Calcium Level 8.2L, Phosphorus Level 4.7, Magnesium Level 2.6H, Total Bilirubin 0.3, Gamma Glutamyl Transpeptidase 18, Aspartate Amino Transf (AST/SGOT) 53H, Alanine Aminotransferase (ALT/SGPT) 32, Alkaline Phosphatase 79, Total Creatine Kinase 194, C-Reactive Protein, Quantitative 17.5H, Pro-B-Type Natriuretic Peptide 78936F, Total Protein 7.1, Albumin 1.9L, Globulin 5.2, Albumin/Globulin Ratio 0.4L, Triglycerides Level 81, Cholesterol Level 105, LDL Cholesterol 51, HDL Cholesterol 38L, Cholesterol/HDL Ratio 2.8L, Thyroid Stimulating Hormone ( TSH) 1.109 07/15/20 12:52: POC Whole Blood Glucose 242H 07/15/20 15:10: Body Fluid Albumin [Pending], Body Fluid Lactate Dehydrogenase [Pending] 07/15/20 17:53: POC Whole Blood Glucose 201H 07/15/20 18:30: Urine Random Sodium < 20L 07/15/20 20:42: POC Whole Blood Glucose 163H 07/16/20 05:07: POC Whole Blood Glucose 164H 07/16/20 08:45: White Blood Count 12.8H, Red Blood Count 4.65L, Hemoglobin 12.3L, Hematocrit 41.0L, Mean Corpuscular Volume 88, Mean Corpuscular Hemoglobin 26.5L, Mean Corpuscular Hemoglobin Concent 30.1L, Red Cell Distribution Width 16.4H, Platelet Count 177, Mean Platelet Volume 7.6, Neutrophils (%) (Auto) , Lymphocytes (%) (Auto) , Monocytes (%) (Auto) , Eosinophils (%) (Auto) , Basophils (%) (Auto) , Neutrophils % (Manual) [Pending], Lymphocytes % (Manual) [Pending], Platelet Estimate [Pending], Platelet Morphology [Pending], Sodium Level 141, Potassium Level 4.7, Chloride Level 106, Carbon Dioxide Level 31, Anion Gap 4L, Blood Urea Nitrogen 67H, Creatinine 1.9H, Estimat Glomerular Filtration Rate 34.2, Glucose Level 204H, Uric Acid 6.9, Calcium Level 8.6, Total Bilirubin 0.3, Aspartate Amino Transf (AST/SGOT) 60H, Alanine Aminotransferase (ALT/SGPT) 42, Alkaline Phosphatase 61, Total Protein 6.7, Albumin 1.7L, Globulin 5.0, Albumin/Globulin Ratio 0.3L Height (Feet): 5 Height (Inches): 4.00 Weight (Pounds): 141 General Appearance: no apparent distress, other - Patient claims to be feeling better Cardiovascular: normal rate Respiratory/Chest: decreased breath sounds Abdomen: distended Stephan Loera MD Jul 16, 2020 10:10
--- NOTE | 2020-07-16 10:19 | Infectious Diseases Prog Note ---
Assessment/Plan Assessment/Plan A: 1. Urinary tract infection. Cultures are pending. 2. Ascites & cirrhosis 3. Pleural effusion. 4. COPD. 5. Diabetes. 6. Hypertension. 7. Renal insufficiency. PLAN: 1. Continue IV cefepime. 2. We will order urine cultures. 3. We will follow up cultures and adjust antibiotics accordingly. Subjective ROS Limited/Unobtainable: Yes Constitutional: Reports: no symptoms Respiratory: Reports: no symptoms Gastrointestinal/Abdominal: Reports: other - had paracentesis & removal of 4 liter of fluid Musculoskeletal: Reports: no symptoms Allergies: Coded Allergies: No Known Allergies (Unverified , 07/15/20) Objective Last 24 Hour Vital Signs Date Time Temp Pulse Resp B/P (MAP) Pulse Ox O2 Delivery O2 Flow Rate FiO2 07/16/20 09:14 64 130/55 07/16/20 09:13 64 130/55 07/16/20 08:00 3.0 07/16/20 08:00 60 07/16/20 08:00 Bi-pap 07/16/20 07:49 96.8 64 18 130/55 (80) 95 07/16/20 04:00 Bi-pap 07/16/20 04:00 3.0 07/16/20 04:00 96.6 60 18 149/72 (97) 98 07/16/20 03:44 60 07/16/20 00:00 3.0 07/16/20 00:00 96.4 58 18 107/50 (69) 98 07/16/20 00:00 Bi-pap 07/15/20 23:28 61 07/15/20 20:00 Bi-pap 07/15/20 20:00 96.6 59 18 139/58 (85) 98 07/15/20 20:00 3.0 07/15/20 19:27 99 Nasal Cannula 2.0 28 07/15/20 19:04 62 07/15/20 16:00 Bi-pap 07/15/20 16:00 3.0 07/15/20 16:00 96.1 60 18 120/52 (74) 98 07/15/20 15:32 62 07/15/20 12:00 Bi-pap 07/15/20 12:00 60 07/15/20 12:00 3.0 07/15/20 12:00 96.5 60 19 127/58 (81) 93 07/15/20 11:00 92 Nasal Cannula 2.0 28 Height (Feet): 5 Height (Inches): 4.00 Weight (Pounds): 141 HEENT: mucous membranes moist Respiratory/Chest: lungs clear Cardiovascular: normal rate, pacemaker/AICD Abdomen: distended, other - soft Extremities: no edema Neurologic/Psychiatric: alert, responsive Microbiology Date/Time Source Procedure Growth Status 07/15/20 00:35 Blood Blood Culture - Preliminary NO GROWTH AFTER 24 HOURS Resulted 07/15/20 00:30 Blood Blood Culture - Preliminary NO GROWTH AFTER 24 HOURS Resulted 07/15/20 00:20 Nasopharynx SARS-CoV-2 RdRp Gene Assay - Final Complete 07/15/20 00:55 Urine,Clean Catch Urine Culture - Preliminary Gram Negative Bacillus 1 Resulted Laboratory Tests Test 07/15/20 10:25 07/15/20 12:52 07/15/20 15:10 07/15/20 17:53 White Blood Count 14.0 K/UL (4.8-10.8) H Red Blood Count 4.55 M/UL (4.70-6.10) L Hemoglobin 12.3 G/DL (14.2-18.0) L Hematocrit 40.3 % (42.0-52.0) L Mean Corpuscular Volume 89 FL (80-99) Mean Corpuscular Hemoglobin 27.0 PG (27.0-31.0) Mean Corpuscular Hemoglobin Concent 30.5 G/DL (32.0-36.0) L Red Cell Distribution Width 16.1 % (11.6-14.8) H Platelet Count 168 K/UL (150-450) Mean Platelet Volume 7.3 FL (6.5-10.1) Neutrophils (%) (Auto) % (45.0-75.0) Lymphocytes (%) (Auto) % (20.0-45.0) Monocytes (%) (Auto) % (1.0-10.0) Eosinophils (%) (Auto) % (0.0-3.0) Basophils (%) (Auto) % (0.0-2.0) Differential Total Cells Counted 100 Neutrophils % (Manual) 93 % (45-75) H Lymphocytes % (Manual) 3 % (20-45) L Monocytes % (Manual) 4 % (1-10) Eosinophils % (Manual) 0 % (0-3) Basophils % (Manual) 0 % (0-2) Band Neutrophils 0 % (0-8) Platelet Estimate Adequate Platelet Morphology Normal Red Blood Cell Morphology Normal Sodium Level 138 MMOL/L (136-145) Potassium Level 5.6 MMOL/L (3.5-5.1) H Chloride Level 102 MMOL/L (98-107) Carbon Dioxide Level 27 MMOL/L (21-32) Anion Gap 9 mmol/L (5-15) Blood Urea Nitrogen 60 mg/dL (7-18) H Creatinine 2.2 MG/DL (0.55-1.30) H Estimat Glomerular Filtration Rate 28.9 mL/min (>60) Glucose Level 217 MG/DL (74-106) H Hemoglobin A1c 6.7 % (4.3-6.0) H Uric Acid 6.7 MG/DL (2.6-7.2) Calcium Level 8.2 MG/DL (8.5-10.1) L Phosphorus Level 4.7 MG/DL (2.5-4.9) Magnesium Level 2.6 MG/DL (1.8-2.4) H Total Bilirubin 0.3 MG/DL (0.2-1.0) Gamma Glutamyl Transpeptidase 18 U/L (5-85) Aspartate Amino Transf (AST/SGOT) 53 U/L (15-37) H Alanine Aminotransferase (ALT/SGPT) 32 U/L (12-78) Alkaline Phosphatase 79 U/L (46-116) Total Creatine Kinase 194 U/L (26-308) C-Reactive Protein, Quantitative 17.5 mg/dL (0.00-0.90) H Pro-B-Type Natriuretic Peptide 11091 pg/mL (0-125) H Total Protein 7.1 G/DL (6.4-8.2) Albumin 1.9 G/DL (3.4-5.0) L Globulin 5.2 g/dL Albumin/Globulin Ratio 0.4 (1.0-2.7) L Triglycerides Level 81 MG/DL (30-150) Cholesterol Level 105 MG/DL (< 200) LDL Cholesterol 51 mg/dL (<100) HDL Cholesterol 38 MG/DL (40-60) L Cholesterol/HDL Ratio 2.8 (3.3-4.4) L Thyroid Stimulating Hormone (TSH) 1.109 uiU/mL (0.358-3.740) POC Whole Blood Glucose 242 MG/DL (74-106) H 201 MG/DL (74-106) H Body Fluid Albumin Pending Body Fluid Lactate Dehydrogenase Pending Test 07/15/20 18:30 07/15/20 20:42 07/16/20 05:07 07/16/20 08:45 Urine Random Sodium < 20 mmol/L (20-110) L POC Whole Blood Glucose 163 MG/DL (74-106) H 164 MG/DL (74-106) H White Blood Count 12.8 K/UL (4.8-10.8) H Red Blood Count 4.65 M/UL (4.70-6.10) L Hemoglobin 12.3 G/DL (14.2-18.0) L Hematocrit 41.0 % (42.0-52.0) L Mean Corpuscular Volume 88 FL (80-99) Mean Corpuscular Hemoglobin 26.5 PG (27.0-31.0) L Mean Corpuscular Hemoglobin Concent 30.1 G/DL (32.0-36.0) L Red Cell Distribution Width 16.4 % (11.6-14.8) H Platelet Count 177 K/UL (150-450) Mean Platelet Volume 7.6 FL (6.5-10.1) Neutrophils (%) (Auto) % (45.0-75.0) Lymphocytes (%) (Auto) % (20.0-45.0) Monocytes (%) (Auto) % (1.0-10.0) Eosinophils (%) (Auto) % (0.0-3.0) Basophils (%) (Auto) % (0.0-2.0) Differential Total Cells Counted 100 Neutrophils % (Manual) 90 % (45-75) H Lymphocytes % (Manual) 2 % (20-45) L Monocytes % (Manual) 7 % (1-10) Eosinophils % (Manual) 0 % (0-3) Basophils % (Manual) 0 % (0-2) Band Neutrophils 1 % (0-8) Platelet Estimate Adequate Platelet Morphology Normal Hypochromasia 1+ Anisocytosis 1+ Sodium Level 141 MMOL/L (136-145) Potassium Level 4.7 MMOL/L (3.5-5.1) Chloride Level 106 MMOL/L (98-107) Carbon Dioxide Level 31 MMOL/L (21-32) Anion Gap 4 mmol/L (5-15) L Blood Urea Nitrogen 67 mg/dL (7-18) H Creatinine 1.9 MG/DL (0.55-1.30) H Estimat Glomerular Filtration Rate 34.2 mL/min (>60) Glucose Level 204 MG/DL (74-106) H Uric Acid 6.9 MG/DL (2.6-7.2) Calcium Level 8.6 MG/DL (8.5-10.1) Total Bilirubin 0.3 MG/DL (0.2-1.0) Aspartate Amino Transf (AST/SGOT) 60 U/L (15-37) H Alanine Aminotransferase (ALT/SGPT) 42 U/L (12-78) Alkaline Phosphatase 61 U/L (46-116) Total Protein 6.7 G/DL (6.4-8.2) Albumin 1.7 G/DL (3.4-5.0) L Globulin 5.0 g/dL Albumin/Globulin Ratio 0.3 (1.0-2.7) L Current Medications Medications (Trade) Dose Ordered Sig/Evan Route PRN Reason Start Time Stop Time Status Last Admin Dose Admin Allopurinol (Zyloprim) 200 mg DAILY ORAL 07/17/20 09:00 08/14/20 08:59 UNV Amlodipine Besylate (Norvasc) 5 mg DAILY ORAL 07/16/20 09:00 08/14/20 08:59 07/16/20 09:14 Apixaban (Eliquis) 2.5 mg BID ORAL 07/16/20 09:00 10/13/20 08:59 07/16/20 09:14 Atorvastatin Calcium (Lipitor) 20 mg BEDTIME ORAL 07/15/20 21:00 10/13/20 20:59 07/15/20 20:39 Cefepime HCl 1 gm/ Sodium Chloride 55 ml @ 110 mls/hr DAILY IVPB 07/16/20 09:00 07/22/20 10:59 07/16/20 09:12 Dextrose (Dextrose 50%) 25 ml Q30M PRN IV Hypoglycemia 07/15/20 20:32 10/13/20 20:31 Dextrose (Dextrose 50%) 50 ml Q30M PRN IV Hypoglycemia 07/15/20 20:33 10/13/20 20:32 Docusate Sodium (Colace) 100 mg THREE TIMES A DAY ORAL 07/16/20 09:00 08/14/20 12:59 07/16/20 09:13 Finasteride (Proscar) 5 mg DAILY ORAL 07/16/20 09:00 10/13/20 08:59 07/16/20 09:13 Furosemide (Lasix) 20 mg BEDTIME ORAL 07/15/20 21:00 08/14/20 20:59 07/15/20 20:40 Furosemide (Lasix) 40 mg DAILY ORAL 07/16/20 09:00 08/14/20 08:59 07/16/20 09:13 Hydralazine HCl (Apresoline) 10 mg Q4H PRN IV BP over 160 systolic 07/15/20 20:33 10/13/20 20:32 Insulin Aspart (NovoLOG) BEFORE MEALS AND HS SUBQ 07/15/20 21:00 10/13/20 16:29 07/16/20 05:36 Levothyroxine Sodium (Synthroid) 50 mcg DAILY@0630 ORAL 07/16/20 06:30 08/15/20 11:29 07/16/20 05:41 Methylprednisolone Sodium Succinate (Solu-MEDROL) 40 mg EVERY 6 HOURS IVP 07/16/20 00:00 10/13/20 11:59 07/16/20 05:35 Metoclopramide HCl (Reglan) 5 mg TID ORAL 07/16/20 09:00 08/14/20 12:59 07/16/20 09:14 Metoclopramide HCl (Reglan) 10 mg Q6H PRN IVP Nausea & Vomiting 07/15/20 20:34 08/14/20 20:33 Metoprolol Succinate (Toprol XL) 25 mg DAILY ORAL 07/16/20 09:00 10/13/20 08:59 07/16/20 09:13 Montelukast Sodium (Singulair) 10 mg DAILY ORAL 07/16/20 09:00 10/13/20 08:59 07/16/20 09:12 Nateglinide (Starlix) 120 mg TIAC ORAL 07/16/20 11:30 08/14/20 16:29 UNV Pantoprazole (Protonix) 40 mg EVERY 12 HOURS ORAL 07/15/20 21:00 08/14/20 20:59 07/16/20 09:12 Sennosides (Senokot) 8.6 mg DAILY ORAL 07/16/20 09:00 08/14/20 08:59 07/16/20 09:14 Tamsulosin HCl (Flomax) 0.4 mg BID ORAL 07/16/20 09:00 08/14/20 08:59 07/16/20 09:12 Ever Hall MD Jul 16, 2020 10:19
[2020-07-16 12:00] VITALS: BP 113/55
--- NOTE | 2020-07-16 14:00 | NUR ---
NURSE NOTES: Called and informed Dr. Anni Hall that per microbiology patient is is positive for gram negative rods x three bottles per blood cultures. Patient is on Cefepime [address] Anni Hall acknowledged gave no new orders at this time. Will continue to monitor patient.
--- NOTE | 2020-07-16 15:46 | NUR ---
CASE MANAGEMENT: REVIEW 07/16/2020 SI:SEPSIS. PNA. VS: T 96.3 HR 60 RR 18 B/P 113/55 SATS 93% ON BIPAP LABS: WBC 12.8 BUN 67 CR 1.9 GLU 204 AST 60 IS;SOLU MEDROL IV Q6H PROTONIX PO Q12H LIPITOR PO QHS LASIX PO QHS ELIQUIS PO BID FLOMAX PO BID CEFEPIME IV QD NORVASC PO QD INSULIN SUBQ AC/HS SDU DCP: HOME PLAN OF CARE PER CARDIO>> Information regarding pacemaker will be obtained and consideration for interrogation Antimicrobials. Await culture results
--- NOTE | 2020-07-16 15:52 | NUR ---
INSURANCE PROGRESS NOTES AND REVIEW FAXED TO [facility]: PATRICIA P:[phone] F:[phone]
[2020-07-16 16:00] VITALS: BP 112/51
--- NOTE | 2020-07-16 19:10 | NUR ---
NURSE NOTES: Received report from Danny Wilder RN. Pt asleep in bed, afebrile and no respiratory distress noted. With left upper chest pacemaker on V-paced via 5 lead threat monitoring analyst. On Nasal Cannula at 3lpm of oxygen. Pt saturating 99-100%. With left FA 20G intact, patent and asymptomatic. HOB elevated. Call light within reach. Bed rails are up and wheels are locked. Continue to monitor the patient
--- NOTE | 2020-07-16 19:20 | NUR ---
NURSE HAND-OFF REPORT: Important Events on Shift: None Patient Status: Stable Diet: CCHO medium soft easy chew Pending Orders: None. Pending Results/Labs: None. Pending MD notification: None. Latest Vital Signs: Temperature 97.0 , Pulse 60 , B/P 112 /51 , Respiratory Rate 18 , O2 SAT 93 , Bi-pap, O2 Flow Rate 3.0 . Vital Sign Comment: None. EKG Rhythm: V,paced Rhythm change?: N MD Notified?: - MD Response: Latest Cortez Fall Score: 60 Fall Risk: High Risk Safety Measures: Call light Within Reach, Bed Alarm Zone 1, Side Rails Side Rails x3, Bed position Low and Locked. Fall Precautions: Report given to CALEB York.
[2020-07-16 20:00] VITALS: BP 117/46
[2020-07-16] MEDS: Atorvastatin 20mg tab ORAL SCH (21:39)
[2020-07-17] VITALS: BP 124/54
[2020-07-17] MEDS: Solu-MEDROL 40mg Inj IVP SCH ×4 (00:03→21:08)
--- NOTE | 2020-07-17 01:33 | Cardiology Progress Note ---
Subjective DATE OF SERVICE: Jul 16, 2020 No new fevers Sleepy, but arousable. No respiratory distress Objective Last 24 Hour Vital Signs Date Time Temp Pulse Resp B/P (MAP) Pulse Ox O2 Delivery O2 Flow Rate FiO2 07/17/20 01:11 60 21 97 30 07/17/20 00:00 96.7 60 18 124/54 (77) 93 07/17/20 00:00 Bi-pap 07/17/20 00:00 28 07/16/20 23:34 60 07/16/20 22:44 60 21 96 30 07/16/20 20:00 3.0 07/16/20 20:00 96.6 60 18 117/46 (69) 93 07/16/20 20:00 Bi-pap 07/16/20 19:53 60 07/16/20 19:38 60 20 95 Nasal Cannula 2.0 07/16/20 19:38 95 Nasal Cannula 2.0 28 07/16/20 16:00 Bi-pap 07/16/20 16:00 97.0 60 18 112/51 (71) 93 07/16/20 16:00 3.0 07/16/20 16:00 60 07/16/20 13:10 96 Nasal Cannula 2.0 28 07/16/20 12:00 3.0 07/16/20 12:00 62 07/16/20 12:00 96.3 60 18 113/55 (74) 93 07/16/20 12:00 Bi-pap 07/16/20 09:14 64 130/55 07/16/20 09:13 64 130/55 07/16/20 08:00 3.0 07/16/20 08:00 60 07/16/20 08:00 Bi-pap 07/16/20 07:49 96.8 64 18 130/55 (80) 95 07/16/20 04:00 Bi-pap 07/16/20 04:00 3.0 07/16/20 04:00 96.6 60 18 149/72 (97) 98 07/16/20 03:44 60 ROS: unchanged from my evaluation on 07/15/20 HEENT: normal ENT inspection RHYTHM: NSR, PACs LUNGS: lungs clear bilaterally, diminished breath sounds CARDIAC: normal rate, regular rhythm, normal S1 and S2, systolic murmur - 1/6 at base, gallop/S4 ABDOMEN: normal bowel sounds, soft, no organomegaly, other - no ascites EXTREMITIES: no calf tenderness, No edema Laboratory Tests Test 07/16/20 05:07 07/16/20 08:45 07/16/20 11:38 07/16/20 16:11 POC Whole Blood Glucose 164 MG/DL (74-106) H 188 MG/DL (74-106) H 267 MG/DL (74-106) H White Blood Count 12.8 K/UL (4.8-10.8) H Red Blood Count 4.65 M/UL (4.70-6.10) L Hemoglobin 12.3 G/DL (14.2-18.0) L Hematocrit 41.0 % (42.0-52.0) L Mean Corpuscular Volume 88 FL (80-99) Mean Corpuscular Hemoglobin 26.5 PG (27.0-31.0) L Mean Corpuscular Hemoglobin Concent 30.1 G/DL (32.0-36.0) L Red Cell Distribution Width 16.4 % (11.6-14.8) H Platelet Count 177 K/UL (150-450) Mean Platelet Volume 7.6 FL (6.5-10.1) Neutrophils (%) (Auto) % (45.0-75.0) Lymphocytes (%) (Auto) % (20.0-45.0) Monocytes (%) (Auto) % (1.0-10.0) Eosinophils (%) (Auto) % (0.0-3.0) Basophils (%) (Auto) % (0.0-2.0) Differential Total Cells Counted 100 Neutrophils % (Manual) 90 % (45-75) H Lymphocytes % (Manual) 2 % (20-45) L Monocytes % (Manual) 7 % (1-10) Eosinophils % (Manual) 0 % (0-3) Basophils % (Manual) 0 % (0-2) Band Neutrophils 1 % (0-8) Platelet Estimate Adequate Platelet Morphology Normal Hypochromasia 1+ Anisocytosis 1+ Sodium Level 141 MMOL/L (136-145) Potassium Level 4.7 MMOL/L (3.5-5.1) Chloride Level 106 MMOL/L (98-107) Carbon Dioxide Level 31 MMOL/L (21-32) Anion Gap 4 mmol/L (5-15) L Blood Urea Nitrogen 67 mg/dL (7-18) H Creatinine 1.9 MG/DL (0.55-1.30) H Estimat Glomerular Filtration Rate 34.2 mL/min (>60) Glucose Level 204 MG/DL (74-106) H Uric Acid 6.9 MG/DL (2.6-7.2) Calcium Level 8.6 MG/DL (8.5-10.1) Total Bilirubin 0.3 MG/DL (0.2-1.0) Aspartate Amino Transf (AST/SGOT) 60 U/L (15-37) H Alanine Aminotransferase (ALT/SGPT) 42 U/L (12-78) Alkaline Phosphatase 61 U/L (46-116) Total Protein 6.7 G/DL (6.4-8.2) Albumin 1.7 G/DL (3.4-5.0) L Globulin 5.0 g/dL Albumin/Globulin Ratio 0.3 (1.0-2.7) L Test 07/16/20 21:38 POC Whole Blood Glucose 198 MG/DL (74-106) H Microbiology Date/Time Source Procedure Growth Status 07/15/20 00:35 Blood Blood Culture - Preliminary Gram Negative Carmine Resulted 07/15/20 00:30 Blood Blood Culture - Preliminary Gram Negative Carmine Resulted 07/15/20 00:20 Nasopharynx SARS-CoV-2 RdRp Gene Assay - Final Complete 07/15/20 00:55 Urine,Clean Catch Urine Culture - Preliminary Gram Negative Bacillus 1 Resulted Assessment/Plan Assessment/Plan UTI Sepsis 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
[2020-07-17 04:00] VITALS: BP 135/60
--- NOTE | 2020-07-17 04:15 | NUR ---
TRANSFER TO FLOOR: Patient transferred to , per Dr Garcia. Report given to Mendy Dumont RN. Belongings and medications given to Mendy Dumont RN Family and or S/O informed of transfer. Pt Stable and agreed to the transfer.
--- NOTE | 2020-07-17 04:30 | NUR ---
NURSE NOTES: Important Events on Shift: Transfer from SDU to Tele. Patient Status: Stable Diet: CCHO Med soft easy chew Current weight: 83 kg Pending Orders: None Pending Results/Labs:None Pending MD notification: Troponin trending down. Latest Vital Signs: Temperature 96.6 , Pulse 60 , B/P 135 /60 , Respiratory Rate 18 , O2 SAT 93 , Bi-pap, O2 Flow Rate 3.0. Vital Sign Comment: Stable EKG Rhythm: V-paced Rhythm change?: N MD Notified?: - MD Response: Latest Cortez Fall Score: 60 Fall Risk: High Risk Safety Measures: Call light Within Reach, Bed Alarm Zone 1, Side Rails Side Rails x3, Bed position Low and Locked. Fall Precautions: Call light Within Reach, YES Bed Alarm Zone 1, YES Side Rails Side Rails x3, YES Bed position Low and Locked YES Received report from FIORDALIZA, SDU RN. Pt in stable condition, denies pain. VS WNL. Will continue plan of care. WCP entered into EMR. Will continue to monitor closely.
[2020-07-17] MEDS ORDERED: Metoclopramide 10mg/2ml Inj IVP PRN (04:49)
[2020-07-17] MEDS: NovoLOG Insulin Flexpen SUBQ SCH ×4 (05:54→21:23)
--- NOTE | 2020-07-17 06:43 | NUR ---
NURSE HAND-OFF REPORT: Important Events on Shift: Transfer to [facility] from SDU Patient Status: stable Diet: CCHO med soft easy chew Pending Orders: none Pending Results/Labs:none Pending MD notification:none Latest Vital Signs: Temperature 96.6 , Pulse 60 , B/P 135 /60 , Respiratory Rate 18 , O2 SAT 93 , Bi-pap PRN, O2 Flow Rate 3.0 . Vital Sign Comment: Stable throughout shift EKG Rhythm: V-paced Rhythm change?: N MD Notified?: - MD Response: Latest Cortez Fall Score: 60 Fall Risk: High Risk Safety Measures: Call light Within Reach, Bed Alarm Zone 1, Side Rails Side Rails x3, Bed position Low and Locked. Fall Precautions: Call light Within Reach, YES Bed Alarm Zone 1, YES Side Rails Side Rails x3, YES Bed position Low and Locked YES Report to be given to Aniya Little RN .
--- NOTE | 2020-07-17 07:43 | NUR ---
NURSE NOTES: Received Pt report from CALEB [place]. Pt is stable, AOx4, and on 3LPM NC with no S/S or complaints of distress at this time. Pt sitting up in bed eating breakfast. Pt L FA 20g SL, asymptomatic and intact. Pt sacral and bilateral heel redness, and R ankle bruising/redness noted. Pt has L pacemaker, Vpaced. Pt is bed bound. Pt bed low and locked, bed alarm on, call light in reach and Pt instructed to call for assistance. pt verbalized understanding.
[2020-07-17 08:00] VITALS: BP 124/62
--- NOTE | 2020-07-17 08:21 | Pulmonology Progress Note ---
Subjective ROS Limited/Unobtainable: Yes Interval Events: Looking and feeling better Constitutional: Reports: no symptoms HEENT: Repors: no symptoms Respiratory: Reports: no symptoms Cardiovascular: Reports: no symptoms Gastrointestinal/Abdominal: Reports: no symptoms, other - had paracentesis & removal of 4 liter of fluid Genitourinary: Reports: no symptoms Musculoskeletal: Reports: no symptoms Allergies: Coded Allergies: No Known Allergies (Unverified , 07/15/20) Objective Last 24 Hour Vital Signs Date Time Temp Pulse Resp B/P (MAP) Pulse Ox O2 Delivery O2 Flow Rate FiO2 07/17/20 04:00 Bi-pap 07/17/20 04:00 3.0 07/17/20 04:00 96.6 60 18 135/60 (85) 07/17/20 03:25 61 07/17/20 03:22 58 21 98 30 07/17/20 01:11 60 21 97 30 07/17/20 00:00 96.7 60 18 124/54 (77) 07/17/20 00:00 Bi-pap 07/17/20 00:00 28 07/16/20 23:34 60 07/16/20 22:44 60 21 96 30 07/16/20 20:00 3.0 07/16/20 20:00 96.6 60 18 117/46 (69) 93 07/16/20 20:00 Bi-pap 07/16/20 19:53 60 07/16/20 19:38 60 20 95 Nasal Cannula 2.0 07/16/20 19:38 95 Nasal Cannula 2.0 28 07/16/20 16:00 Bi-pap 07/16/20 16:00 97.0 60 18 112/51 (71) 07/16/20 16:00 3.0 07/16/20 16:00 60 07/16/20 13:10 96 Nasal Cannula 2.0 07/16/20 12:00 3.0 07/16/20 12:00 62 07/16/20 12:00 96.3 60 18 113/55 (74) 93 07/16/20 12:00 Bi-pap 07/16/20 09:14 64 130/55 07/16/20 09:13 64 130/55 Intake and Output 07/16/20 07/17/20 19:00 07:00 Intake Total 420 ml 300 ml Output Total 300 ml 300 ml Balance 120 ml 0 ml Intake Oral 420 ml 300 ml Output Urine Total 300 ml 300 ml # Voids 3 1 General Appearance: no acute distress Respiratory: chest wall non-tender Cardiovascular: normal peripheral pulses Abdomen: normal bowel sounds Extremities: no cyanosis Microbiology Date/Time Source Procedure Growth Status 07/15/20 00:35 Blood Blood Culture - Preliminary Gram Negative Carmine Resulted 07/15/20 00:30 Blood Blood Culture - Preliminary Gram Negative Carmine Resulted 07/15/20 00:20 Nasopharynx SARS-CoV-2 RdRp Gene Assay - Final Complete 07/15/20 00:55 Urine,Clean Catch Urine Culture - Final Klebsiella Pneumoniae Complete 07/15/20 15:10 Abdominal Fluid Gram Stain - Final Resulted 07/15/20 15:10 Abdominal Fluid Body Fluid Culture Pending Resulted Laboratory Tests 07/16/20 08:45: White Blood Count 12.8H, Red Blood Count 4.65L, Hemoglobin 12.3L, Hematocrit 41.0L, Mean Corpuscular Volume 88, Mean Corpuscular Hemoglobin 26.5L, Mean Corpuscular Hemoglobin Concent 30.1L, Red Cell Distribution Width 16.4H, Platelet Count 177, Mean Platelet Volume 7.6, Neutrophils (%) (Auto) , Lymphocytes (%) (Auto) , Monocytes (%) (Auto) , Eosinophils (%) (Auto) , Basophils (%) (Auto) , Differential Total Cells Counted 100, Neutrophils % ( Manual) 90H, Lymphocytes % (Manual) 2L, Monocytes % (Manual) 7, Eosinophils % ( Manual) 0, Basophils % (Manual) 0, Band Neutrophils 1, Platelet Estimate Adequate, Platelet Morphology Normal, Hypochromasia 1+, Anisocytosis 1+, Sodium Level 141, Potassium Level 4.7, Chloride Level 106, Carbon Dioxide Level 31, Anion Gap 4L, Blood Urea Nitrogen 67H, Creatinine 1.9H, Estimat Glomerular Filtration Rate 34.2, Glucose Level 204H, Uric Acid 6.9, Calcium Level 8.6, Total Bilirubin 0.3, Aspartate Amino Transf (AST/SGOT) 60H, Alanine Aminotransferase (ALT/SGPT) 42, Alkaline Phosphatase 61, Total Protein 6.7, Albumin 1.7L, Globulin 5.0, Albumin/Globulin Ratio 0.3L 07/16/20 11:38: POC Whole Blood Glucose 188H 07/16/20 16:11: POC Whole Blood Glucose 267H 07/16/20 21:38: POC Whole Blood Glucose 198H 07/17/20 05:47: POC Whole Blood Glucose [Pending] Current Medications Medications (Trade) Dose Ordered Sig/Evan Route PRN Reason Start Time Stop Time Status Last Admin Dose Admin Allopurinol (Zyloprim) 200 mg DAILY ORAL 07/17/20 09:00 08/14/20 08:59 Amlodipine Besylate (Norvasc) 5 mg DAILY ORAL 07/17/20 09:00 08/14/20 08:59 Apixaban (Eliquis) 2.5 mg BID ORAL 07/17/20 09:00 10/13/20 08:59 Atorvastatin Calcium (Lipitor) 20 mg BEDTIME ORAL 07/17/20 21:00 10/13/20 20:59 Cefepime HCl 1 gm/ Sodium Chloride 55 ml @ 110 mls/hr DAILY IVPB 07/17/20 09:00 07/22/20 10:59 Dextrose (Dextrose 50%) 25 ml Q30M PRN IV Hypoglycemia 07/17/20 04:45 10/13/20 20:31 Dextrose (Dextrose 50%) 50 ml Q30M PRN IV Hypoglycemia 07/17/20 04:45 10/13/20 20:32 Docusate Sodium (Colace) 100 mg THREE TIMES A DAY ORAL 07/17/20 09:00 08/14/20 12:59 Finasteride (Proscar) 5 mg DAILY ORAL 07/17/20 09:00 10/13/20 08:59 Furosemide (Lasix) 20 mg BEDTIME ORAL 07/17/20 21:00 08/14/20 20:59 Furosemide (Lasix) 40 mg DAILY ORAL 07/17/20 09:00 08/14/20 08:59 Hydralazine HCl (Apresoline) 10 mg Q4H PRN IV BP over 160 systolic 07/17/20 04:45 10/13/20 20:32 Insulin Aspart (NovoLOG) BEFORE MEALS AND HS SUBQ 07/17/20 06:30 10/13/20 16:29 07/17/20 05:54 Levothyroxine Sodium (Synthroid) 50 mcg DAILY@0630 ORAL 07/17/20 06:30 08/15/20 11:29 07/17/20 06:02 Methylprednisolone Sodium Succinate (Solu-MEDROL) 40 mg EVERY 6 HOURS IVP 07/17/20 06:00 10/13/20 11:59 07/17/20 05:58 Metoclopramide HCl (Reglan) 5 mg TID ORAL 07/17/20 09:00 08/14/20 12:59 Metoclopramide HCl (Reglan) 10 mg Q6H PRN IVP Nausea & Vomiting 07/17/20 04:49 08/14/20 04:48 Metoprolol Succinate (Toprol XL) 25 mg DAILY ORAL 07/17/20 09:00 10/13/20 08:59 Montelukast Sodium (Singulair) 10 mg DAILY ORAL 07/17/20 09:00 10/13/20 08:59 Nateglinide (Starlix) 120 mg TIAC ORAL 07/17/20 06:30 08/15/20 11:29 07/17/20 06:02 Pantoprazole (Protonix) 40 mg EVERY 12 HOURS ORAL 07/17/20 09:00 08/14/20 20:59 Sennosides (Senokot) 8.6 mg DAILY ORAL 07/17/20 09:00 08/14/20 08:59 Tamsulosin HCl (Flomax) 0.4 mg BID ORAL 07/17/20 09:00 08/14/20 08:59 Assessment/Plan Assessment/Plan IMPRESSION: 1. Respiratory failure; resolved 2. Liver cirrhosis. 3. CHF. 4. Calcified mitral anulus. 5. Pulmonary edema. 6. Chronic right effusion. 7. Pneumonia. 8. UTI. 9. S/p paracentesis DISCUSSION: Continue broad-spectrum antibiotics. Consulted Nephrology, Cardiology, and ID. Continue home medications Has O2 and BiPAP for nocturnal use at home Likely dc home today Saman Garcia M.D. Saman Garcia MD Jul 17, 2020 08:21
[2020-07-17] MEDS: Montelukast 10mg tablet ORAL SCH (08:38)
[2020-07-17] MEDS: Sennosides 8.6mg tab ORAL SCH (08:38)
[2020-07-17] MEDS: Docusate 100mg cap ORAL SCH ×3 (08:38→18:04)
[2020-07-17] MEDS: Furosemide 40mg tab ORAL SCH (08:39)
[2020-07-17] MEDS: Tamsulosin 0.4mg cap ORAL SCH ×2 (08:39→18:04)
[2020-07-17] MEDS: Allopurinol 100mg Tab ORAL SCH (08:40)
[2020-07-17] MEDS: Eliquis 2.5mg tablet ORAL SCH ×2 (08:41→18:04)
[2020-07-17] MEDS: Metoprolol Succinate XL 25mg tab ORAL SCH (08:41)
--- NOTE | 2020-07-17 08:41 | NUR ---
CASE MANAGEMENT: REVIEW 07/17/2020 SI:SEPSIS. PNA. VS: T 96.6 HR 60 RR 18 B/P 135/60 SATS 93% ON 3L/BIPAP LABS: GLU 198 IS;SOLU MEDROL IV Q6H PROTONIX PO Q12H LIPITOR PO QHS LASIX PO QHS ELIQUIS PO BID FLOMAX PO BID CEFEPIME IV QD NORVASC PO QD INSULIN SUBQ AC/HS SDU DCP: HOME
[2020-07-17] MEDS: Cefepime HCl 1 GM in NS 55 ML IVPB SCH (08:42)
--- NOTE | 2020-07-17 08:46 | NUR ---
INSURANCE PROGRESS NOTES AND REVIEW FAXED TO [facility]: PATRICIA P:[phone] F:[phone]
[2020-07-17] MEDS ORDERED: Allopurinol 100mg Tab ORAL SCH (09:00)
[2020-07-17 09:14] LABS: ALANINE AMINOTRANSFERASE 38 U/L (12-78); ALBUMIN 1.7 G/DL (3.4-5.0); ALBUMIN/GLOBULIN RATIO 0.4 (1.0-2.7); ALKALINE PHOSPHATASE 67 U/L (46-116); ANION GAP 3 mmol/L (5-15); ASPARTATE AMINO TRANSFERASE 50 U/L (15-37); BILIRUBIN,TOTAL 0.3 MG/DL (0.2-1.0); BLOOD UREA NITROGEN 88 mg/dL (7-18); CALCIUM 8.3 MG/DL (8.5-10.1); CARBON DIOXIDE 31 MMOL/L (21-32); CHLORIDE 105 MMOL/L (98-107); CREATININE 2.2 MG/DL (0.55-1.30); PHOSPHORUS 5.6 MG/DL (2.5-4.9); POTASSIUM 5.1 MMOL/L (3.5-5.1); SODIUM 139 MMOL/L (136-145)
[2020-07-17] MEDS ORDERED: AMLODIPINE BES2.5 MG ORAL (09:52)
[2020-07-17] MEDS ORDERED: ADVAIR 250-501 EACH INH (09:52)
[2020-07-17] MEDS ORDERED: METOPROLOL SUCC25 MG ORAL (09:52)
[2020-07-17] MEDS ORDERED: FLOMAX0.4 MG ORAL (09:52)
[2020-07-17] MEDS ORDERED: PROSCAR5 MG ORAL (09:52)
[2020-07-17] MEDS ORDERED: LEVOTHYROXINE100 MC1 IV (09:52)
[2020-07-17] MEDS ORDERED: LEVOFLOXACIN250 MG ORAL (09:52)
[2020-07-17] MEDS ORDERED: ACARBOSE50 MG ORAL (09:52)
[2020-07-17] MEDS ORDERED: ALLOPURINOL100 M1 ORAL (09:52)
[2020-07-17] MEDS ORDERED: ELIQUIS2.5 MG PO (09:52)
[2020-07-17] MEDS ORDERED: COLCHICINE0.6 M1 PO (09:52)
[2020-07-17] MEDS ORDERED: FUROSEMIDE20 M1 ORAL (09:52)
[2020-07-17] MEDS ORDERED: ATORVASTATIN CA20 MG ORAL (09:52)
[2020-07-17] MEDS ORDERED: SENNA8.6 M2 PO (09:52)
[2020-07-17] MEDS ORDERED: MONTELUKAST SOD10 MG ORAL (09:52)
--- NOTE | 2020-07-17 10:47 | Infectious Diseases Prog Note ---
Assessment/Plan Assessment/Plan antibiotics : cefepime A 1. gram negative sepsis 2. klebsiella UTI 3. leucocytosis improving 4. renal failure 5. cirrhosis 6. ascites s/p paracentesis 7. diabetes mellitus 8. hypertension 9. COPD P 1. continue cefepime 2. will follow up cultures Subjective Constitutional: Denies: fever, chills Respiratory: Denies: shortness of breath, dry cough Gastrointestinal/Abdominal: Denies: nausea, vomiting, diarrhea Musculoskeletal: Denies: pain Allergies: Coded Allergies: No Known Allergies (Unverified , 07/15/20) Objective Last 24 Hour Vital Signs Date Time Temp Pulse Resp B/P (MAP) Pulse Ox O2 Delivery O2 Flow Rate FiO2 07/17/20 08:41 58 124/62 07/17/20 08:40 58 124/62 07/17/20 08:00 Bi-pap 07/17/20 08:00 98.2 86 22 124/62 (82) 93 07/17/20 08:00 62 07/17/20 08:00 3.0 07/17/20 07:30 92 Nasal Cannula 2.0 07/17/20 07:30 60 20 92 Nasal Cannula 2.0 07/17/20 04:00 Bi-pap 07/17/20 04:00 3.0 07/17/20 04:00 96.6 60 18 135/60 (85) 93 07/17/20 03:25 61 07/17/20 03:22 58 21 98 30 07/17/20 01:11 60 21 97 30 07/17/20 00:00 96.7 60 18 124/54 (77) 93 07/17/20 00:00 Bi-pap 07/17/20 00:00 28 07/16/20 23:34 60 07/16/20 22:44 60 21 96 30 07/16/20 20:00 3.0 07/16/20 20:00 96.6 60 18 117/46 (69) 93 07/16/20 20:00 Bi-pap 07/16/20 19:53 60 07/16/20 19:38 60 20 95 Nasal Cannula 2.0 28 07/16/20 19:38 95 Nasal Cannula 2.0 28 07/16/20 16:00 Bi-pap 07/16/20 16:00 97.0 60 18 112/51 (71) 93 07/16/20 16:00 3.0 07/16/20 16:00 60 07/16/20 13:10 96 Nasal Cannula 2.0 28 07/16/20 12:00 3.0 07/16/20 12:00 62 07/16/20 12:00 96.3 60 18 113/55 (74) 93 07/16/20 12:00 Bi-pap Height (Feet): 5 Height (Inches): 4.00 Weight (Pounds): 145 Respiratory/Chest: lungs clear Cardiovascular: normal rate, regular rhythm, no gallop/murmur Abdomen: soft, non tender, distended Extremities: no edema Microbiology Date/Time Source Procedure Growth Status 07/15/20 00:35 Blood Blood Culture - Preliminary Gram Negative Carmine Resulted 07/15/20 00:30 Blood Blood Culture - Preliminary Gram Negative Carmine Resulted 07/15/20 00:20 Nasopharynx SARS-CoV-2 RdRp Gene Assay - Final Complete 07/15/20 00:55 Urine,Clean Catch Urine Culture - Final Klebsiella Pneumoniae Complete 07/15/20 15:10 Abdominal Fluid Gram Stain - Final Resulted 07/15/20 15:10 Abdominal Fluid Body Fluid Culture Pending Resulted Laboratory Tests Test 07/16/20 11:38 07/16/20 16:11 07/16/20 21:38 07/17/20 05:47 POC Whole Blood Glucose 188 MG/DL (74-106) H 267 MG/DL (74-106) H 198 MG/DL (74-106) H Pending Test 07/17/20 08:35 Sodium Level 139 MMOL/L (136-145) Potassium Level 5.1 MMOL/L (3.5-5.1) Chloride Level 105 MMOL/L (98-107) Carbon Dioxide Level 31 MMOL/L (21-32) Anion Gap 3 mmol/L (5-15) L Blood Urea Nitrogen 88 mg/dL (7-18) H Creatinine 2.2 MG/DL (0.55-1.30) H Estimat Glomerular Filtration Rate 28.9 mL/min (>60) Glucose Level 244 MG/DL (74-106) H Calcium Level 8.3 MG/DL (8.5-10.1) L Phosphorus Level 5.6 MG/DL (2.5-4.9) H Magnesium Level 2.6 MG/DL (1.8-2.4) H Total Bilirubin 0.3 MG/DL (0.2-1.0) Aspartate Amino Transf (AST/SGOT) 50 U/L (15-37) H Alanine Aminotransferase (ALT/SGPT) 38 U/L (12-78) Alkaline Phosphatase 67 U/L (46-116) Total Protein 6.4 G/DL (6.4-8.2) Albumin 1.7 G/DL (3.4-5.0) L Globulin 4.7 g/dL Albumin/Globulin Ratio 0.4 (1.0-2.7) L Current Medications Medications (Trade) Dose Ordered Sig/Evan Route PRN Reason Start Time Stop Time Status Last Admin Dose Admin Allopurinol (Zyloprim) 200 mg DAILY ORAL 07/17/20 09:00 08/14/20 08:59 07/17/20 08:40 Amlodipine Besylate (Norvasc) 5 mg DAILY ORAL 07/17/20 09:00 08/14/20 08:59 07/17/20 08:40 Apixaban (Eliquis) 2.5 mg BID ORAL 07/17/20 09:00 10/13/20 08:59 07/17/20 08:41 Atorvastatin Calcium (Lipitor) 20 mg BEDTIME ORAL 07/17/20 21:00 10/13/20 20:59 Cefepime HCl 1 gm/ Sodium Chloride 55 ml @ 110 mls/hr DAILY IVPB 07/17/20 09:00 07/22/20 10:59 07/17/20 08:42 Dextrose (Dextrose 50%) 25 ml Q30M PRN IV Hypoglycemia 07/17/20 04:45 10/13/20 20:31 Dextrose (Dextrose 50%) 50 ml Q30M PRN IV Hypoglycemia 07/17/20 04:45 10/13/20 20:32 Docusate Sodium (Colace) 100 mg THREE TIMES A DAY ORAL 07/17/20 09:00 08/14/20 12:59 07/17/20 08:38 Finasteride (Proscar) 5 mg DAILY ORAL 07/17/20 09:00 10/13/20 08:59 07/17/20 08:39 Furosemide (Lasix) 20 mg BEDTIME ORAL 07/17/20 21:00 08/14/20 20:59 Furosemide (Lasix) 40 mg DAILY ORAL 07/17/20 09:00 08/14/20 08:59 07/17/20 08:39 Hydralazine HCl (Apresoline) 10 mg Q4H PRN IV BP over 160 systolic 07/17/20 04:45 10/13/20 20:32 Insulin Aspart (NovoLOG) BEFORE MEALS AND HS SUBQ 07/17/20 06:30 10/13/20 16:29 07/17/20 05:54 Levothyroxine Sodium (Synthroid) 50 mcg DAILY@0630 ORAL 07/17/20 06:30 08/15/20 11:29 07/17/20 06:02 Methylprednisolone Sodium Succinate (Solu-MEDROL) 40 mg EVERY 6 HOURS IVP 07/17/20 06:00 10/13/20 11:59 07/17/20 05:58 Metoclopramide HCl (Reglan) 5 mg TID ORAL 07/17/20 09:00 08/14/20 12:59 07/17/20 08:41 Metoclopramide HCl (Reglan) 10 mg Q6H PRN IVP Nausea & Vomiting 07/17/20 04:49 08/14/20 04:48 Metoprolol Succinate (Toprol XL) 25 mg DAILY ORAL 07/17/20 09:00 10/13/20 08:59 07/17/20 08:41 Montelukast Sodium (Singulair) 10 mg DAILY ORAL 07/17/20 09:00 10/13/20 08:59 07/17/20 08:38 Nateglinide (Starlix) 120 mg TIAC ORAL 07/17/20 06:30 08/15/20 11:29 07/17/20 06:02 Pantoprazole (Protonix) 40 mg EVERY 12 HOURS ORAL 07/17/20 09:00 08/14/20 20:59 07/17/20 08:38 Sennosides (Senokot) 8.6 mg DAILY ORAL 07/17/20 09:00 08/14/20 08:59 07/17/20 08:38 Tamsulosin HCl (Flomax) 0.4 mg BID ORAL 07/17/20 09:00 08/14/20 08:59 07/17/20 08:39 David Castaneda MD Jul 17, 2020 10:47
[2020-07-17 12:00] VITALS: BP 142/54
--- NOTE | 2020-07-17 12:43 | Nephrology Progress Note ---
Assessment/Plan Problem List: (1) Renal failure (ARF), acute on chronic (2) Hyperkalemia (3) COPD exacerbation (4) CHF (congestive heart failure) (5) Sepsis (6) Liver cirrhosis (7) Pacemaker Assessment Renal failure, acute on chronic, most likely diabetic nephropathy Presents with shortness of breath most likely combination of COPD exacerbation and CHF Hyperkalemia Sepsis, pneumonia Compromised ejection fraction on 2D echo Questionable cirrhosis BPH Plan July 17: Patient examined. Medication reviewed. Will decrease Solu-Medrol to every 12 hours. Continue to rest. We hopefully can change to oral prednisone in a.m. Kayexalate for high potassium as needed Kidney ultrasound, results noted Bedside bladder scan, indicative of 30 cc retention Flomax and Proscar to be continued Optimize pulmonary and cardiac status Avoid nephrotoxic's Keep the blood pressure and blood sugar in check Urine studies Per orders Subjective ROS Limited/Unobtainable: No Objective Objective Last 24 Hour Vital Signs Date Time Temp Pulse Resp B/P (MAP) Pulse Ox O2 Delivery O2 Flow Rate FiO2 07/17/20 12:00 60 07/17/20 12:00 3.0 07/17/20 12:00 98.3 72 20 142/54 (83) 93 07/17/20 08:41 58 124/62 07/17/20 08:40 58 124/62 07/17/20 08:00 Bi-pap 07/17/20 08:00 98.2 86 22 124/62 (82) 93 07/17/20 08:00 62 07/17/20 08:00 3.0 07/17/20 07:30 92 Nasal Cannula 2.0 07/17/20 07:30 60 20 92 Nasal Cannula 2.0 07/17/20 04:00 Bi-pap 07/17/20 04:00 3.0 07/17/20 04:00 96.6 60 18 135/60 (85) 07/17/20 03:25 61 07/17/20 03:22 58 21 98 30 07/17/20 01:11 60 21 97 30 07/17/20 00:00 96.7 60 18 124/54 (77) 93 07/17/20 00:00 Bi-pap 07/17/20 00:00 28 07/16/20 23:34 60 8/27/20 22:44 60 21 96 30 07/16/20 20:00 3.0 07/16/20 20:00 96.6 60 18 117/46 (69) 93 07/16/20 20:00 Bi-pap 07/16/20 19:53 60 07/16/20 19:38 60 20 95 Nasal Cannula 2.0 28 07/16/20 19:38 95 Nasal Cannula 2.0 28 07/16/20 16:00 Bi-pap 07/16/20 16:00 97.0 60 18 112/51 (71) 93 07/16/20 16:00 3.0 07/16/20 16:00 60 07/16/20 13:10 96 Nasal Cannula 2.0 28 Intake and Output 07/16/20 07/17/20 19:00 07:00 Intake Total 420 ml 300 ml Output Total 300 ml 300 ml Balance 120 ml 0 ml Intake Oral 420 ml 300 ml Output Urine Total 300 ml 300 ml # Voids 3 1 Current Medications Medications (Trade) Dose Ordered Sig/Evan Route PRN Reason Start Time Stop Time Status Last Admin Dose Admin Allopurinol (Zyloprim) 200 mg DAILY ORAL 07/17/20 09:00 08/14/20 08:59 07/17/20 08:40 Amlodipine Besylate (Norvasc) 5 mg DAILY ORAL 07/17/20 09:00 08/14/20 08:59 07/17/20 08:40 Apixaban (Eliquis) 2.5 mg BID ORAL 07/17/20 09:00 10/13/20 08:59 07/17/20 08:41 Atorvastatin Calcium (Lipitor) 20 mg BEDTIME ORAL 07/17/20 21:00 10/13/20 20:59 Cefepime HCl 1 gm/ Sodium Chloride 55 ml @ 110 mls/hr DAILY IVPB 07/17/20 09:00 07/22/20 10:59 07/17/20 08:42 Dextrose (Dextrose 50%) 25 ml Q30M PRN IV Hypoglycemia 07/17/20 04:45 10/13/20 20:31 Dextrose (Dextrose 50%) 50 ml Q30M PRN IV Hypoglycemia 07/17/20 04:45 10/13/20 20:32 Docusate Sodium (Colace) 100 mg THREE TIMES A DAY ORAL 07/17/20 09:00 08/14/20 12:59 07/17/20 08:38 Finasteride (Proscar) 5 mg DAILY ORAL 07/17/20 09:00 10/13/20 08:59 07/17/20 08:39 Furosemide (Lasix) 20 mg BEDTIME ORAL 07/17/20 21:00 08/14/20 20:59 Furosemide (Lasix) 40 mg DAILY ORAL 07/17/20 09:00 08/14/20 08:59 07/17/20 08:39 Hydralazine HCl (Apresoline) 10 mg Q4H PRN IV BP over 160 systolic 07/17/20 04:45 10/13/20 20:32 Insulin Aspart (NovoLOG) BEFORE MEALS AND HS SUBQ 07/17/20 06:30 10/13/20 16:29 07/17/20 11:19 Levothyroxine Sodium (Synthroid) 50 mcg DAILY@0630 ORAL 07/17/20 06:30 08/15/20 11:29 07/17/20 06:02 Methylprednisolone Sodium Succinate (Solu-MEDROL) 40 mg EVERY 12 HOURS IVP 07/17/20 21:00 10/13/20 11:59 UNV Metoclopramide HCl (Reglan) 5 mg TID ORAL 07/17/20 09:00 08/14/20 12:59 07/17/20 08:41 Metoclopramide HCl (Reglan) 10 mg Q6H PRN IVP Nausea & Vomiting 07/17/20 04:49 08/14/20 04:48 Metoprolol Succinate (Toprol XL) 25 mg DAILY ORAL 07/17/20 09:00 10/13/20 08:59 07/17/20 08:41 Montelukast Sodium (Singulair) 10 mg DAILY ORAL 07/17/20 09:00 10/13/20 08:59 07/17/20 08:38 Nateglinide (Starlix) 120 mg TIAC ORAL 07/17/20 06:30 08/15/20 11:29 07/17/20 11:22 Pantoprazole (Protonix) 40 mg EVERY 12 HOURS ORAL 07/17/20 09:00 08/14/20 20:59 07/17/20 08:38 Sennosides (Senokot) 8.6 mg DAILY ORAL 07/17/20 09:00 08/14/20 08:59 07/17/20 08:38 Tamsulosin HCl (Flomax) 0.4 mg BID ORAL 07/17/20 09:00 08/14/20 08:59 07/17/20 08:39 Laboratory Tests 07/16/20 16:11: POC Whole Blood Glucose 267H 07/16/20 21:38: POC Whole Blood Glucose 198H 07/17/20 05:47: POC Whole Blood Glucose [Pending] 07/17/20 08:35: Sodium Level 139, Potassium Level 5.1, Chloride Level 105, Carbon Dioxide Level 31, Anion Gap 3L, Blood Urea Nitrogen 88H, Creatinine 2.2H, Estimat Glomerular Filtration Rate 28.9, Glucose Level 244H, Calcium Level 8.3L, Phosphorus Level 5.6H, Magnesium Level 2.6H, Total Bilirubin 0.3, Aspartate Amino Transf (AST/ SGOT) 50H, Alanine Aminotransferase (ALT/SGPT) 38, Alkaline Phosphatase 67, Total Protein 6.4, Albumin 1.7L, Globulin 4.7, Albumin/Globulin Ratio 0.4L 07/17/20 11:18: POC Whole Blood Glucose 230H Height (Feet): 5 Height (Inches): 4.00 Weight (Pounds): 145 General Appearance: no apparent distress Cardiovascular: normal rate Respiratory/Chest: decreased breath sounds Abdomen: distended Stephan Loera MD Jul 17, 2020 12:43
[2020-07-17 16:00] VITALS: BP 130/55
--- NOTE | 2020-07-17 19:45 | NUR ---
NURSE NOTES: Report received from SHAYNA Simmons. Patient is alert and oriented x4. Able to stand with walker. Call light and bedside table within reach. Bed at lowest position locked with side rails up. nurse monitoring intact and functioning. On 2 liters nasal canula for COPD. No respiratory distress noted. Shayna Simmons endorsed that possible DC home tomorrow with . Will continue with plan of care.
--- NOTE | 2020-07-17 19:47 | NUR ---
HAND-OFF: Report given to Dede ELLIS.
[2020-07-17 20:00] VITALS: BP 135/50
[2020-07-17] MEDS ORDERED: Atorvastatin 20mg tab ORAL SCH (21:00)
--- NOTE | 2020-07-17 22:20 | Cardiology Progress Note ---
Subjective DATE OF SERVICE: Jul 17, 2020 No new fevers More alert No respiratory distress - remains on IV steroids and diuretic therapy Objective Last 24 Hour Vital Signs Date Time Temp Pulse Resp B/P (MAP) Pulse Ox O2 Delivery O2 Flow Rate FiO2 07/17/20 20:00 97.5 77 20 135/50 (78) 94 07/17/20 19:01 92 Nasal Cannula 2.0 28 07/17/20 18:57 60 20 92 Nasal Cannula 2.0 28 07/17/20 16:00 98.0 64 20 130/55 (80) 95 07/17/20 16:00 3.0 07/17/20 16:00 60 07/17/20 12:00 60 07/17/20 12:00 3.0 07/17/20 12:00 98.3 72 20 142/54 (83) 93 07/17/20 08:41 58 124/62 07/17/20 08:40 58 124/62 07/17/20 08:00 Bi-pap 07/17/20 08:00 98.2 86 22 124/62 (82) 93 07/17/20 08:00 62 07/17/20 08:00 3.0 07/17/20 07:30 92 Nasal Cannula 2.0 28 07/17/20 07:30 60 20 92 Nasal Cannula 2.0 28 07/17/20 04:00 Bi-pap 07/17/20 04:00 3.0 07/17/20 04:00 96.6 60 18 135/60 (85) 93 07/17/20 03:25 61 07/17/20 03:22 58 21 98 30 07/17/20 01:11 60 21 97 30 07/17/20 00:00 96.7 60 18 124/54 (77) 93 07/17/20 00:00 Bi-pap 07/17/20 00:00 28 07/16/20 23:34 60 07/16/20 22:44 60 21 96 30 ROS: unchanged from my evaluation on 07/15/20 HEENT: normal ENT inspection RHYTHM: NSR, PACs LUNGS: lungs clear bilaterally, diminished breath sounds CARDIAC: normal rate, regular rhythm, normal S1 and S2, systolic murmur - 1/6 at base, gallop/S4 ABDOMEN: normal bowel sounds, soft, no organomegaly, other - no ascites EXTREMITIES: no calf tenderness, No edema Laboratory Tests Test 07/17/20 05:47 07/17/20 08:35 07/17/20 11:18 07/17/20 16:28 POC Whole Blood Glucose Pending 230 MG/DL (74-106) H 243 MG/DL (74-106) H Sodium Level 139 MMOL/L (136-145) Potassium Level 5.1 MMOL/L (3.5-5.1) Chloride Level 105 MMOL/L (98-107) Carbon Dioxide Level 31 MMOL/L (21-32) Anion Gap 3 mmol/L (5-15) L Blood Urea Nitrogen 88 mg/dL (7-18) H Creatinine 2.2 MG/DL (0.55-1.30) H Estimat Glomerular Filtration Rate 28.9 mL/min (>60) Glucose Level 244 MG/DL (74-106) H Calcium Level 8.3 MG/DL (8.5-10.1) L Phosphorus Level 5.6 MG/DL (2.5-4.9) H Magnesium Level 2.6 MG/DL (1.8-2.4) H Total Bilirubin 0.3 MG/DL (0.2-1.0) Aspartate Amino Transf (AST/SGOT) 50 U/L (15-37) H Alanine Aminotransferase (ALT/SGPT) 38 U/L (12-78) Alkaline Phosphatase 67 U/L (46-116) Total Protein 6.4 G/DL (6.4-8.2) Albumin 1.7 G/DL (3.4-5.0) L Globulin 4.7 g/dL Albumin/Globulin Ratio 0.4 (1.0-2.7) L Test 07/17/20 21:18 POC Whole Blood Glucose Pending Microbiology Date/Time Source Procedure Growth Status 07/15/20 00:35 Blood Blood Culture - Preliminary Gram Negative Carmine Resulted 07/15/20 00:30 Blood Blood Culture - Preliminary Gram Negative Carmine Resulted 07/15/20 00:20 Nasopharynx SARS-CoV-2 RdRp Gene Assay - Final Complete 07/15/20 00:55 Urine,Clean Catch Urine Culture - Final Klebsiella Pneumoniae Complete 07/15/20 15:10 Abdominal Fluid Gram Stain - Final Resulted 07/15/20 15:10 Abdominal Fluid Body Fluid Culture Pending Resulted Assessment/Plan Assessment/Plan UTI Sepsis 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 Laurent Orozco MD Jul 17, 2020 22:20
[2020-07-18] VITALS: BP 130/55
[2020-07-18 04:00] VITALS: BP 125/61
[2020-07-18] MEDS: NovoLOG Insulin Flexpen SUBQ SCH (06:10)
--- NOTE | 2020-07-18 07:30 | NUR ---
NURSE NOTES: Received report from Dede/RN. Patient is in bed lying comfortably in semi-[place] position. Alert and oriented X4. On nasal canula 2L. No distress or SOB noted at this time. Able to make needs knows. IV on left FA 20G saline locked, patent and clean. Bed in the lowest position and locked. call light within reach, encouraged to use it when needed. Side rails up X3. Will continue plan of care.
--- NOTE | 2020-07-18 07:45 | NUR ---
NURSE HAND-OFF REPORT: Patient received orders to be DC today. Important Events on Shift:[] Patient Status: [Stable A & O x 4] Diet: [CCHO Mech Soft easy chew] Pending Orders: [] Pending Results/Labs:[] Pending MD notification:[] Latest Vital Signs: Temperature 97.8 , Pulse 63 , B/P 125 /61 , Respiratory Rate 24 , O2 SAT 97 , Bi-pap, O2 Flow Rate 3.0 . Vital Sign Comment: [] EKG Rhythm: A-Flutter w/ V pacing, PVC Rhythm change?: N MD Notified?: N - MD Response: Latest Cortez Fall Score: 60 Fall Risk: High Risk Safety Measures: Call light Within Reach, Bed Alarm Zone 1, Side Rails Side Rails x3, Bed position Low and Locked. Fall Precautions: Report given to [CALEB Herzog].
[2020-07-18 07:55] LABS: HEMATOCRIT 40.9 % (42.0-52.0); HEMOGLOBIN 12.3 G/DL (14.2-18.0); MEAN CORPUSCULAR VOLUME 88 FL (80-99); PLATELET COUNT 183 K/UL (150-450); RED BLOOD COUNT 4.62 M/UL (4.70-6.10); RED CELL DISTRIBUTION WIDTH 15.7 % (11.6-14.8); WHITE BLOOD COUNT 10.6 K/UL (4.8-10.8)
[2020-07-18 08:00] VITALS: BP 128/51
[2020-07-18 08:21] LABS: ALANINE AMINOTRANSFERASE 35 U/L (12-78); ALBUMIN 1.9 G/DL (3.4-5.0); ALBUMIN/GLOBULIN RATIO 0.4 (1.0-2.7); ALKALINE PHOSPHATASE 73 U/L (46-116); ANION GAP 5 mmol/L (5-15); ASPARTATE AMINO TRANSFERASE 43 U/L (15-37); BILIRUBIN,TOTAL 0.2 MG/DL (0.2-1.0); BLOOD UREA NITROGEN 103 mg/dL (7-18); CALCIUM 8.4 MG/DL (8.5-10.1); CARBON DIOXIDE 31 MMOL/L (21-32); CHLORIDE 102 MMOL/L (98-107); CREATININE 2.2 MG/DL (0.55-1.30); PHOSPHORUS 5.1 MG/DL (2.5-4.9); POTASSIUM 4.5 MMOL/L (3.5-5.1); SODIUM 138 MMOL/L (136-145)
[2020-07-18] MEDS: Furosemide 40mg tab ORAL SCH (08:58)
[2020-07-18] MEDS: Cefepime HCl 1 GM in NS 55 ML IVPB SCH (08:59)
[2020-07-18] MEDS: Tamsulosin 0.4mg cap ORAL SCH (09:00)
[2020-07-18] MEDS: Allopurinol 100mg Tab ORAL SCH (09:00)
[2020-07-18] MEDS: Solu-MEDROL 40mg Inj IVP SCH (09:00)
[2020-07-18] MEDS: Montelukast 10mg tablet ORAL SCH (09:01)
[2020-07-18] MEDS: Eliquis 2.5mg tablet ORAL SCH (09:01)
[2020-07-18] MEDS: Sennosides 8.6mg tab ORAL SCH (09:01)
[2020-07-18] MEDS: Docusate 100mg cap ORAL SCH (09:01)
[2020-07-18 09:16] VITALS: BP 128/51
[2020-07-18] MEDS: Metoprolol Succinate XL 25mg tab ORAL SCH (09:16)
--- NOTE | 2020-07-18 09:26 | Diagnostic Imaging Report ---
EXAM: XR Chest, 2 Views CLINICAL HISTORY: ABN CHST TECHNIQUE: Frontal and lateral views of the chest. COMPARISON: 07/15/20. There is unchanged cardiomegaly. 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 There are left subclavian cardiac leads in unchanged position. FINDINGS: Lungs: There are unchanged bilateral mixed interstitial and alveolar infiltrates likely representing pulmonary edema. Superimposed pneumonia cannot be excluded. Pleural space: Unremarkable. No pneumothorax. Heart: Unremarkable. No cardiomegaly. Mediastinum: Unremarkable. Bones/joints: Unremarkable. IMPRESSION: There are unchanged bilateral mixed interstitial and alveolar infiltrates likely representing pulmonary edema. Superimposed pneumonia cannot be excluded.
--- NOTE | 2020-07-18 10:08 | NUR ---
CASE MANAGEMENT: REVIEW 07/18/2020 SI:SEPSIS. PNA. 97.8 65 17 125/61 95% ON 3L/BIPAP BUN/CREAT 103/2.2 BG 213 URIC ACID 7.5 PHOS 5.1 MG 2.8 [id number] ALB1.9 IS:IV ANCEF QD IV LASIX QHS IV SOLU-MEDROL BID 40MG NORVASC PO QD \: 2E TELE UNIT DCP: HOME PLAN: DISCHARGE
--- NOTE | 2020-07-18 10:21 | NUR ---
*-* INSURANCE *-* UPDATED CLINICALS AND REVIEWS HAVE BEEN FAXED TO: IPA: PATRICIA [phone] F:[phone]
--- NOTE | 2020-07-18 10:32 | Nephrology Progress Note ---
Assessment/Plan Problem List: (1) Renal failure (ARF), acute on chronic (2) Hyperkalemia (3) COPD exacerbation (4) CHF (congestive heart failure) (5) Sepsis (6) Liver cirrhosis (7) Pacemaker Assessment Renal failure, acute on chronic, most likely diabetic nephropathy Presents with shortness of breath most likely combination of COPD exacerbation and CHF Hyperkalemia Sepsis, pneumonia Compromised ejection fraction on 2D echo Questionable cirrhosis BPH Plan July 18: Clinically improved. Labs reviewed. Solu-Medrol discontinued. Discussed with Dr. Garcia. Patient to be started on oral prednisone for COPD. Serum creatinine 2.2 stable. Upon discharge to follow-up with reducing salon attendant as an outpatient for monitoring renal parameters. July 17: Patient examined. Medication reviewed. Will decrease Solu-Medrol to every 12 hours. Continue to rest. We hopefully can change to oral prednisone in a.m. Kayexalate for high potassium as needed Kidney ultrasound, results noted Bedside bladder scan, indicative of 30 cc retention Flomax and Proscar to be continued Optimize pulmonary and cardiac status Avoid nephrotoxic's Keep the blood pressure and blood sugar in check Urine studies Per orders Subjective ROS Limited/Unobtainable: No Objective Objective Last 24 Hour Vital Signs Date Time Temp Pulse Resp B/P (MAP) Pulse Ox O2 Delivery O2 Flow Rate FiO2 07/18/20 09:16 63 128/51 07/18/20 09:00 59 128/51 07/18/20 04:33 63 24 97 30 07/18/20 04:00 3.0 07/18/20 04:00 Bi-pap 07/18/20 04:00 97.8 65 17 125/61 (82) 95 07/18/20 04:00 62 07/18/20 03:00 64 24 97 30 07/18/20 01:07 68 25 97 30 07/18/20 00:04 Bi-pap 07/18/20 00:00 97.6 70 18 130/55 (80) 96 07/18/20 00:00 3.0 07/18/20 00:00 60 07/17/20 23:13 71 25 96 30 07/17/20 20:00 60 07/17/20 20:00 97.5 77 20 135/50 (78) 94 07/17/20 19:01 92 Nasal Cannula 2.0 07/17/20 18:57 60 20 92 Nasal Cannula 2.0 28 07/17/20 16:00 98.0 64 20 130/55 (80) 95 07/17/20 16:00 3.0 07/17/20 16:00 60 07/17/20 12:00 60 07/17/20 12:00 3.0 07/17/20 12:00 98.3 72 20 142/54 (83) 93 Intake and Output 07/17/20 07/18/20 19:00 07:00 Output Total 550 ml Balance -550 ml Output Urine Total 550 ml # Voids 2 2 Current Medications Medications (Trade) Dose Ordered Sig/Evan Route PRN Reason Start Time Stop Time Status Last Admin Dose Admin Allopurinol (Zyloprim) 200 mg DAILY ORAL 07/17/20 09:00 08/14/20 08:59 07/18/20 09:00 Amlodipine Besylate (Norvasc) 5 mg DAILY ORAL 07/17/20 09:00 08/14/20 08:59 07/18/20 09:00 Apixaban (Eliquis) 2.5 mg BID ORAL 07/17/20 09:00 10/13/20 08:59 07/18/20 09:01 Atorvastatin Calcium (Lipitor) 20 mg BEDTIME ORAL 07/17/20 21:00 10/13/20 20:59 07/17/20 21:07 Cefepime HCl 1 gm/ Sodium Chloride 55 ml @ 110 mls/hr DAILY IVPB 07/17/20 09:00 07/22/20 10:59 07/18/20 08:59 Dextrose (Dextrose 50%) 25 ml Q30M PRN IV Hypoglycemia 07/17/20 04:45 10/13/20 20:31 Dextrose (Dextrose 50%) 50 ml Q30M PRN IV Hypoglycemia 07/17/20 04:45 10/13/20 20:32 Docusate Sodium (Colace) 100 mg THREE TIMES A DAY ORAL 07/17/20 09:00 08/14/20 12:59 07/18/20 09:01 Finasteride (Proscar) 5 mg DAILY ORAL 07/17/20 09:00 10/13/20 08:59 07/18/20 09:01 Furosemide (Lasix) 20 mg BEDTIME ORAL 07/17/20 21:00 08/14/20 20:59 07/17/20 21:08 Furosemide (Lasix) 40 mg DAILY ORAL 07/17/20 09:00 08/14/20 08:59 07/18/20 08:58 Hydralazine HCl (Apresoline) 10 mg Q4H PRN IV BP over 160 systolic 07/17/20 04:45 10/13/20 20:32 Insulin Aspart (NovoLOG) BEFORE MEALS AND HS SUBQ 07/17/20 06:30 10/13/20 16:29 07/18/20 06:10 Levothyroxine Sodium (Synthroid) 50 mcg DAILY@0630 ORAL 07/17/20 06:30 08/15/20 11:29 07/18/20 06:04 Methylprednisolone Sodium Succinate (Solu-MEDROL) 40 mg EVERY 12 HOURS IVP 07/17/20 21:00 10/13/20 11:59 07/18/20 09:00 Metoclopramide HCl (Reglan) 5 mg TID ORAL 07/17/20 09:00 08/14/20 12:59 07/18/20 09:01 Metoclopramide HCl (Reglan) 10 mg Q6H PRN IVP Nausea & Vomiting 07/17/20 04:49 08/14/20 04:48 Metoprolol Succinate (Toprol XL) 25 mg DAILY ORAL 07/17/20 09:00 10/13/20 08:59 07/18/20 09:16 Montelukast Sodium (Singulair) 10 mg DAILY ORAL 07/17/20 09:00 10/13/20 08:59 07/18/20 09:01 Nateglinide (Starlix) 120 mg TIAC ORAL 07/17/20 06:30 08/15/20 11:29 07/18/20 06:01 Pantoprazole (Protonix) 40 mg EVERY 12 HOURS ORAL 07/17/20 09:00 08/14/20 20:59 07/18/20 09:01 Sennosides (Senokot) 8.6 mg DAILY ORAL 07/17/20 09:00 08/14/20 08:59 07/18/20 09:01 Tamsulosin HCl (Flomax) 0.4 mg BID ORAL 07/17/20 09:00 08/14/20 08:59 07/18/20 09:00 Laboratory Tests 07/17/20 11:18: POC Whole Blood Glucose 230H 07/17/20 16:28: POC Whole Blood Glucose 243H 07/17/20 21:18: POC Whole Blood Glucose [Pending] 07/18/20 06:03: POC Whole Blood Glucose 223H 07/18/20 06:25: White Blood Count 10.6, Red Blood Count 4.62L, Hemoglobin 12.3L, Hematocrit 40.9L, Mean Corpuscular Volume 88, Mean Corpuscular Hemoglobin 26.6L, Mean Corpuscular Hemoglobin Concent 30.1L, Red Cell Distribution Width 15.7H, Platelet Count 183, Mean Platelet Volume 7.4, Neutrophils (%) (Auto) , Lymphocytes (%) (Auto) , Monocytes (%) (Auto) , Eosinophils (%) (Auto) , Basophils (%) (Auto) , Neutrophils % (Manual) [Pending], Lymphocytes % (Manual) [Pending], Platelet Estimate [Pending], Platelet Morphology [Pending], Sodium Level 138, Potassium Level 4.5, Chloride Level 102, Carbon Dioxide Level 31, Anion Gap 5, Blood Urea Nitrogen 103H, Creatinine 2.2H, Estimat Glomerular Filtration Rate 28.9, Glucose Level 213H, Uric Acid 7.5H, Calcium Level 8.4L, Phosphorus Level 5.1H, Magnesium Level 2.8H, Total Bilirubin 0.2, Aspartate Amino Transf (AST/SGOT) 43H, Alanine Aminotransferase (ALT/SGPT) 35, Alkaline Phosphatase 73, C-Reactive Protein, Quantitative 4.4H, Pro-B-Type Natriuretic Peptide 8101H, Total Protein 6.8, Albumin 1.9L, Globulin 4.9, Albumin/Globulin Ratio 0.4L Height (Feet): 5 Height (Inches): 4.00 Weight (Pounds): 144 General Appearance: no apparent distress Cardiovascular: normal rate Respiratory/Chest: decreased breath sounds Abdomen: distended Stephan Loera MD Jul 18, 2020 10:32
--- NOTE | 2020-07-18 10:50 | NUR ---
NURSE NOTES: Discharge instructions given and patient verbalized understanding. Pt discharged via private vehicle, accompanied by his . Patient in stable condition, no distress or SOB noted. Patient left with his on oxygen on 2L [place]. nuclear monitoring technician and IV access, and ID band removed. Belongings check list done.
[2020-07-18] MEDS ORDERED: Tubing IV Secondary IV ONE (11:06)
--- NOTE | 2020-07-18 21:47 | Cardiology Progress Note ---
Subjective DATE OF SERVICE: Jul 18, 2020 No new fevers Awake and alert No respiratory distress - remains on tapering steroids and diuretic therapy; BNP decreasing trend. Objective Last 24 Hour Vital Signs Date Time Temp Pulse Resp B/P (MAP) Pulse Ox O2 Delivery O2 Flow Rate FiO2 07/18/20 09:16 63 128/51 07/18/20 09:00 59 128/51 07/18/20 08:00 3.0 07/18/20 08:00 97.6 64 18 128/51 (76) 95 07/18/20 08:00 Bi-pap 07/18/20 08:00 63 07/18/20 04:33 63 24 97 30 07/18/20 04:00 3.0 07/18/20 04:00 Bi-pap 07/18/20 04:00 97.8 65 17 125/61 (82) 95 07/18/20 04:00 62 07/18/20 03:00 64 24 97 30 07/18/20 01:07 68 25 97 30 07/18/20 00:04 Bi-pap 07/18/20 00:00 97.6 70 18 130/55 (80) 96 07/18/20 00:00 3.0 07/18/20 00:00 60 07/17/20 23:13 71 25 96 30 ROS: unchanged from my evaluation on 07/15/20 HEENT: normal ENT inspection RHYTHM: NSR, PACs LUNGS: lungs clear bilaterally, diminished breath sounds CARDIAC: normal rate, regular rhythm, normal S1 and S2, systolic murmur - 1/6 at base, gallop/S4 ABDOMEN: normal bowel sounds, soft, no organomegaly, other - no ascites EXTREMITIES: no calf tenderness, No edema Laboratory Tests Test 07/18/20 06:03 07/18/20 06:25 POC Whole Blood Glucose 223 MG/DL (74-106) H White Blood Count 10.6 K/UL (4.8-10.8) Red Blood Count 4.62 M/UL (4.70-6.10) L Hemoglobin 12.3 G/DL (14.2-18.0) L Hematocrit 40.9 % (42.0-52.0) L Mean Corpuscular Volume 88 FL (80-99) Mean Corpuscular Hemoglobin 26.6 PG (27.0-31.0) L Mean Corpuscular Hemoglobin Concent 30.1 G/DL (32.0-36.0) L Red Cell Distribution Width 15.7 % (11.6-14.8) H Platelet Count 183 K/UL (150-450) Mean Platelet Volume 7.4 FL (6.5-10.1) Neutrophils (%) (Auto) % (45.0-75.0) Lymphocytes (%) (Auto) % (20.0-45.0) Monocytes (%) (Auto) % (1.0-10.0) Eosinophils (%) (Auto) % (0.0-3.0) Basophils (%) (Auto) % (0.0-2.0) Differential Total Cells Counted 100 Neutrophils % (Manual) 92 % (45-75) H Lymphocytes % (Manual) 5 % (20-45) L Monocytes % (Manual) 3 % (1-10) Eosinophils % (Manual) 0 % (0-3) Basophils % (Manual) 0 % (0-2) Band Neutrophils 0 % (0-8) Platelet Estimate Adequate Platelet Morphology Normal Red Blood Cell Morphology Normal Sodium Level 138 MMOL/L (136-145) Potassium Level 4.5 MMOL/L (3.5-5.1) Chloride Level 102 MMOL/L (98-107) Carbon Dioxide Level 31 MMOL/L (21-32) Anion Gap 5 mmol/L (5-15) Blood Urea Nitrogen 103 mg/dL (7-18) H Creatinine 2.2 MG/DL (0.55-1.30) H Estimat Glomerular Filtration Rate 28.9 mL/min (>60) Glucose Level 213 MG/DL (74-106) H Uric Acid 7.5 MG/DL (2.6-7.2) H Calcium Level 8.4 MG/DL (8.5-10.1) L Phosphorus Level 5.1 MG/DL (2.5-4.9) H Magnesium Level 2.8 MG/DL (1.8-2.4) H Total Bilirubin 0.2 MG/DL (0.2-1.0) Aspartate Amino Transf (AST/SGOT) 43 U/L (15-37) H Alanine Aminotransferase (ALT/SGPT) 35 U/L (12-78) Alkaline Phosphatase 73 U/L (46-116) C-Reactive Protein, Quantitative 4.4 mg/dL (0.00-0.90) H Pro-B-Type Natriuretic Peptide 8101 pg/mL (0-125) H Total Protein 6.8 G/DL (6.4-8.2) Albumin 1.9 G/DL (3.4-5.0) L Globulin 4.9 g/dL Albumin/Globulin Ratio 0.4 (1.0-2.7) L CHEST XRAY: 07/18: reveals mild CHF Assessment/Plan Assessment/Plan UTI Sepsis 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 Cautious anti-coagulation Laurent Orozco MD Jul 18, 2020 21:47
--- NOTE | 2020-07-20 16:53 | Discharge Summary ---
Discharge Summary Discharge Summary _ DATE OF ADMISSION: 07/15/2020 DATE OF DISCHARGE: 07/18/2020 DISCHARGED BY: Dr. Garcia REASON FOR ADMISSION: 80 years old male with past medical history of COPD, prostate cancer, liver cirrhosis, congestive heart failure, bladder cancer, was brought to the hospital with altered mental status. Patient reported that he was seen recently at [facility] , where he undergone paracentesis , secondary to his chronic ascites . He previously also had complicated right thoracentesis , history of lung collapse and had a chest tube in place. He remained hypoxic and was shaking at home , while brought to the hospital. Laboratory work-up revealed hyponatremia with sodium 131 , hyperkalemia with potassium 5.7 and evidence of renal failure BUN 54, creatinine 2.2. Lactic acid 2.4. Troponin elevated 0.115, pro BNP 8916. EKG revealed sinus rhythm , no acute ischemic changes . WBC 18.2, hemoglobin 12.5 Albumin 2.1. COVID-19 was negative CXR demonstrated findings suggesting pulmonary edema/CHF with perihilar opacities and small to moderate layering right pleural effusion. Superimposed pneumonia should be excluded clinically. CT scan of the abdomen and pelvis demonstrated moderate volume of abdominal and pelvic ascites. Surface nodularity of the liver, possible cirrhosis . No hydronephrosis. No bowel obstruction. Subsequently patient undergone ultrasound-guided paracentesis yielding 4 L of ascitic fluid. Patient subsequently admitted for further management. CONSULTANTS: assembly member Dr. Orozco ID specialist Dr. Castaneda ventilation mechanic Dr. Loera HOSPITAL COURSE: Patient admitted to telemetry floor . Patient started on the IV hydration and empiric antibiotics. Home medications resumed. Patient was on 100% nonrebreathing mask , then on the BiPAP. Pulmonary toilet provided. Patient started on steroids. Echocardiogram demonstrated preserved ejection fraction of 60 to 65% with mild left ventricular hypertrophy. No evidence of pericardial effusion , no evidence of wall motion abnormality. Telemetry showed sinus rhythm with some premature atrial contractions. Per assembly member patient had increased risk for endocarditis in the setting of bacteremia. Anti-failure and antianginal regimen titrated. Cautious anticoagulation continued. Recommended additional diuresis as outpatient. Steroids tapered and discontinued. Supplemental oxygen titrated to keep pulse oximetry above 92%. As patient clinically improved, she was able to be weaned to nasal cannula. Antibiotic provided as per ID recommendation. Urine culture revealed Klebsiella. Blood culture revealed Klebsiella. Bacteremia was due to urinary tract infection. Ascitic fluid culture was negative. Leukocytosis resolved. No fevers. Antibiotic changed to oral prior to discharge to complete the course at home. Renal parameters and electrolytes closely monitor. Renal ultrasound revealed bilateral normal kidney echogenicity. No hydronephrosis. Electrolytes corrected as needed , and nephrotoxic's were avoided . Per ventilation mechanic patient had renal failure acute on chronic, most likely diabetic nephropathy. Bedside bladder scan was done and revealed 30 cc of retention. Potassium corrected. Supportive care provided. Patient was stable for discharge home with e home O2 and BiPAP. Prescription for oral antibiotics provided FINAL DIAGNOSES: Klebsiella sepsis Klebsiella UTI Pneumonia COPD exacerbation Acute on chronic renal failure Hyperkalemia Valvular cardiomyopathy Acute on chronic systolic and diastolic congestive heart failure Mild aortic stenosis Moderate mitral regurgitation Pacemaker Liver cirrhosis Pulmonary edema Ascites, status post paracentesis Diabetes mellitus Hypertension DISCHARGE MEDICATIONS: See Medication Reconciliation list. DISCHARGE INSTRUCTIONS: Patient was discharged home with home O2 and BiPAP. Follow-up with a primary care provider in 1 week. I have been assigned to dictate discharge summary for this account. I was not involved in the patient's management. Monik Barahona NP Jul 20, 2020 16:53
== END 2020-07-18 11:07 | disposition home or self-care (01) | DRG 871 ==
LOC: EDBD 00:28 → EMR 00:37 → 2W 01:08 → EDBEDREQ 04:49 → 2E 07-17 04:13
PROC: 5A09457 Assistance with Respiratory Ventilation, 24-96 Consecutive Hours, Continuous Positive Airway Pressure (ICD-10-PCS; principal; 2020-07-15)
PROC: 0W9G3ZZ Drainage of Peritoneal Cavity, Percutaneous Approach (ICD-10-PCS; 2020-07-15)
DX: A41.89 Other specified sepsis (principal); J18.9 Pneumonia, unspecified organism; J96.90 Respiratory failure, unspecified, unspecified whether with hypoxia or hypercapnia; I50.43 Acute on chronic combined systolic (congestive) and diastolic (congestive) heart failure; J44.1 Chronic obstructive pulmonary disease with (acute) exacerbation; N17.9 Acute kidney failure, unspecified; E87.1 Hypo-osmolality and hyponatremia; I13.0 Hypertensive heart and chronic kidney disease with heart failure and stage 1 through stage 4 chronic kidney disease, or unspecified chronic kidney disease; N39.0 Urinary tract infection, site not specified; I42.8 Other cardiomyopathies; R18.8 Other ascites; B96.1 Klebsiella pneumoniae [K. pneumoniae] as the cause of diseases classified elsewhere; N18.9 Chronic kidney disease, unspecified; Z85.46 Personal history of malignant neoplasm of prostate; K74.60 Unspecified cirrhosis of liver; E11.22 Type 2 diabetes mellitus with diabetic chronic kidney disease; I35.0 Nonrheumatic aortic (valve) stenosis; I34.0 Nonrheumatic mitral (valve) insufficiency; Z95.0 Presence of cardiac pacemaker; Z90.49 Acquired absence of other specified parts of digestive tract; Z87.891 Personal history of nicotine dependence; E87.5 Hyperkalemia; Z85.51 Personal history of malignant neoplasm of bladder; Z79.82 Long term (current) use of aspirin
CPT/HCPCS: 36415; 36600; 71045; 74176; 76770; 76942; 80053; 80061; 81003; 82550; 82803; 82962; 82977; 83036; 83605; 83735; 83880; 84100; 84300; 84443; 84484; 84550; 85007; 85025; 85610; 85730; 86140; 86850; 86900; 86901; 87040; 87070; 87086; 87181; 87205; 88104; 93005; 93306; 94640; 94660; 94664; 96365; 96368; 96375; 99291; J1815; J7030; J7620; U0002